=== PATIENT | female | born 1995 | race Caucasian/White ===

== ENCOUNTER 2018-07-11 11:03 | Emergency (ER) | payer SELFPAY ==
--- NOTE | 2018-07-11 12:05 | ER ---
Nurse's Notes [facility] Name: Odessa Deras Age: 22 yrs Sex: Female : 1995 Arrival Date: 07/11/2018 Time: 11:05 Bed Waiting Private MD: Unknown, Unknown Diagnosis: Presentation: 07/11 11:16 Presenting complaint: Patient states: She had been feeling sick for about a week, so aj1 she took a test and it was positive. Now she is having lower abdominal cramping for the past 3 days. Denies vaginal bleeding. Patient states that she is not sure how far along she is, and she is not sure when her last period was. Transition of care: patient was not received from another setting of care. Onset of symptoms was July 08, 2018. Risk Assessment: Do you want to hurt yourself or someone else? Patient reports no desire to harm self or others. Initial Sepsis Screen: Does the patient meet any 2 criteria? No. Patient's initial sepsis screen is negative. Does the patient have a suspected source of infection? No. Patient's initial sepsis screen is negative. Care prior to arrival: None. 11:16 Method Of Arrival: Ambulatory aj1 11:16 Acuity: DAVY 3 aj1 Triage Assessment: 11:18 General: Appears in no apparent distress. comfortable, Behavior is calm, cooperative, aj1 appropriate for age. Pain: Complains of pain in right lower quadrant and left lower quadrant Pain currently is 6 out of 10 on a pain scale. Quality of pain is described as crampy. Neuro: Level of Consciousness is awake, alert, obeys commands. Cardiovascular: Patient's skin is warm and dry. Respiratory: Airway is patent Respiratory effort is even, unlabored, Respiratory pattern is regular, symmetrical. GI: Reports cramping. : Denies vaginal bleeding. DRAWING IN HAND: 11:18 LMP N/A - Paitent states she is unsure when her LMP was aj1 Historical: - Allergies: 11:18 PENICILLINS; aj1 - Home Meds: 11:18 None [Active]; aj1 - PMHx: 11:18 pcos; aj1 - PSHx: 11:18 Tonsillectomy; aj1 - Immunization history:: Flu vaccine is not up to date. - Social history:: Smoking status: Patient/guardian denies using tobacco. - Ebola Screening: : Patient denies travel to an Ebola-affected area in the 21 days before illness onset. Assessment: 12:04 Reassessment: Patient told registration staff that she did not want to wait anymore so aj1 she was leaving. Vital Signs: 11:18 BP 111 / 74; Pulse 98; Resp 18; Temp 97.7; Pulse Ox 100% on R/A; Weight 58.97 kg (R); aj1 Height 5 ft. 5 in. (165.10 cm) (R); Pain 6/10; 11:18 Body Mass Index 21.63 (58.97 kg, 165.10 cm) aj1 ED Course: 11:05 Patient arrived in ED. ag5 11:05 Unknown, Unknown is Private Physician. ag5 11:17 Triage completed. aj1 11:18 Arm band placed on Patient placed in waiting room, Patient notified of wait time. aj1 Administered Medications: No medications were administered Outcome: 12:05 Patient left the ED. aj1 Signatures: Lin Brower RN RN aj1 [facility] Corrections: (The following items were deleted from the chart) 11:19 11:18 Arm band placed on Patient placed in an exam room, aj1 aj
[2018-07-11 13:44] VITALS: BP 111/74; TEMP 97.7; O2SAT 100
== END 2018-07-11 12:05 | disposition left against medical advice (07) ==
LOC: ER 11:03
DX: Z53.21 Procedure and treatment not carried out due to patient leaving prior to being seen by health care provider (principal)
CPT/HCPCS: 99281

== ENCOUNTER 2020-05-31 11:05 | Emergency (ER) | payer BC ==
--- OUTSIDE RECORDS SUMMARY | 2020-05-31 11:07 | XMS REPORT | Continuity of Care Document ---
:1995 Author Organization [facility] [employer] [facility] Care Team Providers Name Role Phone [facility] Unavailable Un available Problems Problem Status Onset Classification Date Comments Sourc e Date Reported ARM INJURY Active Ulisesfélix ast 4 Discharge 10/05/2013 Jeremiah ast Diagnosis: 4 Elbow injury Discharge 10/05/2013 Jeremiah ast Diagnosis: 4 Fall Injury of Resolved Problem 10/05/2013 Jeremiah ast upper extremity (disorder) Medications Medication Details Route Status Patient Ordering Order Source Instructions Provider Date Motrin 600 mg, 1 Inactive tab, 014 [place] Route: PO, Drug form: TAB, ONCE, Dosing Weight 56.818, kg, Priority: STAT, Start date: 10/02/13 14:19:00, Stop date: 10/02/13 14:19:00(S carmen as: Motrin) "Do Not Crush" Take with food. Allergies, Adverse Reactions, Alerts Substance Category Reaction Severity Reaction Status Date Comments S ource type Reported penicillins Assertion Drug Active allergy [place] Immunizations No Data Provided for This Section Results No Data Provided for This Section Pathology Reports No Data Provided for This Section Diagnostic Reports No Data Provided for This Section Consultation Notes No Data Provided for This Section Discharge Summaries No Data Provided for This Section History and Physicals No Data Provided for This Section Vital Signs Vital Sign Value Date Comments Source Heart Rate 72 10/02/2013 [facility] Temperature Oral (F) 98.6 F 10/02/2013 [place] Diastolic (mm Hg) 68 10/02/2013 [facility] st Systolic (mm Hg) 108 10/02/2013 [place] Respitory Rate 20 10/02/2013 [facility] BMI Calculated 24.46 10/02/2013 [facility] Weight 56.818 10/02/2013 [facility] Height 152.4 cm 10/02/2013 [facility] Temperature Oral (F) 98.4 F 10/02/2013 [place] Heart Rate 87 10/02/2013 [facility] Respitory Rate 19 10/02/2013 [place] Diastolic (mm Hg) 64 10/02/2013 [facility] st Systolic (mm Hg) 99 10/02/2013 [facility] t Encounters Location Location Encounter Encounter Reason Attending ADM DC Stat us Source Details Type Number For Provider Date Date Visit [facility] [id number] _MAPID: Luciano 10/02 10/02 [facility] [id number] E[facility]NTR[facility] [id number] Hospital 106 Procedures No Data Provided for This Section Assessment and Plan No Data Provided for This Section Plan of Care No Data Provided for This Section Social History No Data Provided for This Section Family History No Data Provided for This Section Advance Directives No Data Provided for This Section Functional Status No Data Provided for This Section
--- OUTSIDE RECORDS SUMMARY | 2020-05-31 11:07 | XMS REPORT | Summary of Care ---
:1995 Author Organization [facility] Address [address] [place] [address] Care Team Providers Name Role Phone Pcp, Does Not Have A Primary Care Provider Encounter Details Date Type Department Care Team Description 03/19/2020 Orders Only [facility] Doctor Unassigned, No [address] [facility] [place] [address] [address] [place] [address] Allergies Active Allergy Reactions Severity Noted Date Comments Penicillins Unknown - See comments 01/01/2013 documented as of this encounter (statuses as of 03/19/2020) Medications Medication Sig Dispensed Refills Start Date End Date Status traMADOL (ULTRAM) 50 Take 1 tablet by mouth every 6 (six) hours as needed for Pain (scale 4-6). Tato Johnson PA-C / Wyatt Dias MD 20 tablet 0 06/04/2016 Active mg tablet JOSE# [id number] DPS# [id number] [place] Lic.# [id number] NPI# [id number] silver sulfADIAZINE Apply to area(s) 2 25 g 1 06/04/2016 Active (SILVADENE) 1 % cream (two) times daily. metFORMIN 500 mg Take 500 mg by 0 Active tablet mouth 2 (two) times daily with meals. sulfamethoxazole-trim Take 1 tablet by 20 tablet 0 07/24/2019 Active ethoprim 800-160 mg mouth every 12 per (twelve) hours. tabletIndications: Mastitis, Rash documented as of this encounter (statuses as of 03/19/2020) Active Problems Problem Noted Date Contraceptive management 09/08/2015 Well woman exam 09/08/2015 Overweight 09/08/2015 Dysmenorrhea 09/08/2015 Encounter for Nexplanon removal 10/14/2014 documented as of this encounter (statuses as of 03/19/2020) Resolved Problems Problem Noted Date Resolved Date Irregular menstrual cycle 10/14/2014 09/08/2015 History of ovarian cyst 06/24/2014 09/08/2015 Rubella immune 01/01/2013 09/08/2015 documented as of this encounter (statuses as of 03/19/2020) Immunizations Name Administration Dates Next Due HPV 09/07/2015 Td 01/01/2010 documented as of this encounter Social History Tobacco Use Types Packs/Day Years Used Date Never Smoker Smokeless Tobacco: Never Used Alcohol Use Drinks/Week oz/Week Comments No Sex Assigned at Date Recorded Not on file documented as of this encounter Last Filed Vital Signs Not on filedocumented in this encounter Plan of Treatment Health Maintenance Due Date Last Done Comments VARICELLA VACCINES (1 of 2 11/08/1996 - 2-dose childhood series) Depression Screening 2007 DTaP,Tdap,and Td Vaccines 11/08/2014 01/01/2010 (2 - Tdap) HPV VACCINES (2 - 3-dose 10/05/2015 09/07/2015 series) CHLAMYDIA SCREENING 09/07/2016 09/07/2015, 09/22/2014, 06/24/2014, Additional history exists PAP SMEAR 11/08/2016 INFLUENZA VACCINE (#1) 2020 PNEUMOCOCCAL 0-64 YEARS Aged Out No longe r eligible COMBINED SERIES based on patient 's age to complete this topic documented as of this encounter Procedures Procedure Name Priority Date/Time Associated Diagnosis Comme nts ASSIGNMENT OF BENEFITS Routine 03/19/2020 10:18 AM CDT documented in this encounter Results Not on filedocumented in this encounter Insurance Payer Benefit Plan Subscriber ID Effective Phone Address Typ e / Group Dates [facility] [id number] 2019-Prese [phone] [address] PPO/POS [id number] [place] [address] [facility] [id number] 2014-Pres [phone] [address] Med icaid ent [address] [place] [address] [facility] [id number] 2014-Pres P O BARBIE Ag ency [employer]ANN[employer]ANN[employer] ent [address] [facility] [place] [phone] documented as of this encounter
--- OUTSIDE RECORDS SUMMARY | 2020-05-31 11:07 | XMS REPORT | Continuity of Care Document ---
:1995 Author Organization [facility] t Address [address] [place] [address] Care Team Providers Name Role Phone Asked, Pcp Primary Care Physician Unavailable 2, Lab Attending Clinician Unavailable Richar FRENCH, Cam Attending Clinician Bowen Doyle Attending Clinician Payers Payer Name Policy Type Policy Number Effective Date Expiration Date S ource Problems Condition Condition Condition Status Onset Resolution Last Treating Co mments Source Name Details Category Date Date Treatment Clinician Date ARM INJURY Diagnosis Active 2013-10-02 Memoria 10-02 15:39:00 l ARM 08:39: [place] INJURY 00 Active 10/02/2013 [place] Injury of Problem Resolve 2013-10-05 M emoria upper d 00:45:16 l extremity Injury Cristy nn (disorder) of upper extremity (disorder) Resolved Problem 10/05/2013 [place] Discharge Problem 2013-10-05 2013-10-05 Memoria Diagnosis: 10-02 00:45:16 00:45:16 l Elbow 05:00: [place] injury Discharge 00 Diagnosis: Elbow injury 10/02/2013 10/05/2013 [place] Discharge Problem 2013-2013-10-05 2013-10-05 Memoria Diagnosis: 3-13 00:45:16 00:45:16 l Fall 05:00: [place] Discharge 00 Diagnosis: Fall 10/02/2013 10/05/2013 [facility] Allergies, Adverse Reactions, Alerts Allergy Allergy Status Severity Reaction(s) Onset Inactive Treating Comm ents Source Name Type Date Date Clinician Penicill Propensi Active 2016-07 [place] to 09-04 [facility] adverse 00:00: st reaction 00 s to drug Penicill DA Active U 2012-07 [facility] [place] penicill penicill Active Memori a ins ins l [place] Social History Social Habit Start Date Stop Date Quantity Comments Source Sex Assigned At [facility] ethodist Tobacco use and 2018-12-27 2018-12-27 Never used [facility] ethodist exposure 00:00:00 00:00:00 Alcohol intake 2018-12-27 2018-12-27 Ex-drinker [facility]ist 00:00:00 00:00:00 (finding) Smoking Status Start Date Stop Date Source Never smoker [place] [facility] Medications Ordered Filled Start Stop Current Ordering Indication Dosage Frequency Signature Comments Components Source Medication Medication Date Date Medication? Clinician (SIG) Name Name Marlon No 600 mg, 1 Memori a -13 tab, l 19:19: Route: PO, [place] 00 Drug form: TAB, ONCE, Dosing Weight 56.818, kg, Priority: STAT, Start date: 10/02/13 14:19:00, Stop date: 10/02/13 14:19:00(S carmen as: Motrin) "Do Not Crush" Take with food. Vital Signs Vital Name Observation Time Observation Value Comments Source Heart Rate 2013-10-02 21:14:00 Ziyad Huang Temperature Oral (F) 2013-10-02 21:14:00 98.6 F [facility] [place] Diastolic (mm Hg) 2013-10-02 21:14:00 Mem oriharry Huang Systolic (mm Hg) 2013-10-02 21:14:00 Celio niki Huang Respitory Rate 2013-10-02 21:14:00 Memevelin Lentz BMI Calculated 2013-10-02 19:12:00 Marylin Lentz Weight 2013-10-02 19:12:00 [facility] [place] Height 2013-10-02 19:12:00 152.4 cm [facility] [place] Temperature Oral (F) 2013-10-02 19:12:00 98.4 F [facility] [place] Heart Rate 2013-10-02 19:12:00 [facility] Respitory Rate 2013-10-02 19:12:00 Memori al [place] Diastolic (mm Hg) 2013-10-02 19:12:00 Mem orial [place] Systolic (mm Hg) 2013-10-02 19:12:00 Celio rial [place] Procedures This patient has no known procedures. Plan of Care Planned Activity Planned Date Details Comments Source Future Scheduled 2020-02-21 INFLUENZA VACCINE [place] [facility] 00:00:00 [code = INFLUENZA VACCINE] Future Scheduled 2016-11-08 Screening for [facility] 00:00:00 malignant neoplasm of cervix (procedure) [code = 542151508] Future Scheduled 2011 CHLAMYDIA SCREENING [place] [facility] 00:00:00 [code = CHLAMYDIA SCREENING] Encounters Start End Encounter Admission Attending Care Care Encounter Source Date/Time Date/Time Type Type Clinicians Facility Department ID 2020-03-31 2020-03-31 Casing Splitter 2, Joao [facility] [id number] 08:49:59 09:04:59 Visit Monika [id number] [place] [id number] Professio [phone] [facility] 353 Building 2020-03-19 2020-03-19 Initial She Mcqueen [facility] [id number] 10:20:58 15:16:36 [place] [id number] Visit [place] [id number] Professio [phone] [place] 134 Building 2013-10-02 2013-10-02 Outpatient EMANI Doyle [id number] 14:03:00 16:16:00 Luciano Wiseman Results Test Description Test Time Test Comments Results Result Comments Source GLUBED 2019-07-25 14:39:00 Test Item Value Reference Range Interpretation Comme nts GLUBED (test code = GLUBED) 185 mg/dL 65-110 H UA RFLX MICR CULT IF [id number] 14:10:00 Test Item Value Reference Range Interpretation Comments UA COLOR (test code = COLU) YELLOW YELLOW UA APPEARANCE (test code = CLEAR CLEAR APPU) UA GLUCOSE DIPSTICK (test code 2+ NEG A = DGLUU) UA BILIRUBIN DIPSTICK (test NEGATIVE NEG code = BILU) UA KETONE DIPSTICK (test code NEGATIVE NEG = KETU) UA SPECIFIC GRAVITY (test code 1.020 1.001-1.035 N = SGU) UA BLOOD DIPSTICK (test code = 3+ NEG A DARIEN) UA PH DIPSTICK (test code = 6.0 5-9 GERARDO) UA PROTEIN DIPSTICK (test code NEGATIVE NEG = PROU) UA UROBILINIOGEN DIPSTICK NEGATIVE mg/dL NEG (test code = URO) UA NITRITE DIPSTICK (test code NEG NEG = GAL) UA LEUKOCYTE ESTERASE DIPSTICK NEG NEG (test code = LEUU) UA WBC (test code = WBCU) 0-2 #/hpf NONE SEEN UA RBC (test code = RBCU) 11-15 #/hpf NONE SEEN A UA EPITHELIAL CELLS (test code RARE #/HPF RARE-FEW = EPIU) UA BACTERIA (test code = BACU) RARE /HPF RARE-FEW Indication for culture: Suprapubic PainUR HCG [id number] 14:10:00 Test Item Value Reference Range Interpretation Comments UR HCG QUAL (test NEGATIVE 1. Very di lute urine code = HCGQLU) specimens, as indicated by a lowspecific g ravity, may not contain rep resentative levels ofhCG. 2 . False negative result s may occur when the levels of hCGare below the sensi tivity level of the test. If is still suspec janneth, a first morningurine sp ecimen should be colle cted 48 hours later and tested. Indication for culture: Suprapubic PainUA RFLX MICR CULT IF INDICATED 2019-07-25 14:03:00 Test Item Value Reference Range Interpretation Comments UA COLOR (test code = COLU) YELLOW UA APPEARANCE (test code = APPU) CLEAR UA GLUCOSE DIPSTICK (test code = NEGATIVE DGLUU) UA BILIRUBIN DIPSTICK (test code = NEGATIVE BILU) UA KETONE DIPSTICK (test code = KETU) NEGATIVE UA SPECIFIC GRAVITY (test code = SGU) 1.001-1.035 UA BLOOD DIPSTICK (test code = DARIEN) NEGATIVE UA PH DIPSTICK (test code = GERARDO) 5-9 UA PROTEIN DIPSTICK (test code = PROU) NEGATIVE UA UROBILINIOGEN DIPSTICK (test code = mg/dL NEG URO) UA NITRITE DIPSTICK (test code = GAL) NEGATIVE UA LEUKOCYTE ESTERASE DIPSTICK (test NEG code = LEUU) UA WBC (test code = WBCU) #/hpf NONE SEEN UA EPITHELIAL CELLS (test code = EPIU) #/HPF RARE-FEW Indication for culture: Suprapubic PainUR HCG [id number] 14:03:00 Test Item Value Reference Range Interpretation Comments UR HCG QUAL (test NEGATIVE 1. Very di lute urine code = HCGQLU) specimens, as indicated by a lowspecific g ravity, may not contain rep resentative levels ofhCG. 2 . False negative result s may occur when the levels of hCGare below the sensi tivity level of the test. If is still suspec janneth, a first morningurine sp ecimen should be colle cted 48 hours later and tested. Indication for culture: Suprapubic Pain
--- OUTSIDE RECORDS SUMMARY | 2020-05-31 11:07 | XMS REPORT | Summary of Care ---
:1995 Author Organization [facility] Address [address] [place] [id number] Care Team Providers Name Role Phone Pcp, Does Not Have A Primary Care Provider Reason for Visit Reason Comments LAB Encounter Details Date Type Department Care Team Description 03/19/2020 Leather Coater Visit [facility] She Mcqueen MD [address] [facility] [address] [place] [address] Abdominal pain, left lower quadrant; Professional Office 2, [facility] Lab examination or test, positive result Building Phlebotomy Lab Professional Office Building [address] [facility] , [address] [place] [address] Allergies Active Allergy Reactions Severity Noted Date Comments Penicillins Unknown - See comments 01/01/2013 documented as of this encounter (statuses as of 03/19/2020) Medications No known medicationsdocumented as of this encounter (statuses as of 03/19/2020) Active Problems Problem Noted Date Obesity (BMI 30-39.9) 03/19/2020 Abdominal pain, left lower quadrant 03/19/2020 examination or test, positive result 020 Estimated Date of Delivery Comments Yes 11/23/2020 Based on last menstr ual period of 02/17/2020 (Exact Date) documented as of this encounter (statuses as of 03/19/2020) Resolved Problems Problem Noted Date Resolved Date Contraceptive management 09/08/2015 03/19/2020 Well woman exam 09/08/2015 03/19/2020 Overweight 09/08/2015 03/19/2020 Dysmenorrhea 09/08/2015 03/19/2020 Irregular menstrual cycle 10/14/2014 09/08/2015 Encounter for Nexplanon removal 10/14/2014 03/19/20 20 History of ovarian cyst 06/24/2014 09/08/2015 Rubella immune 01/01/2013 09/08/2015 documented as of this encounter (statuses as of 03/19/2020) Immunizations Name Administration Dates Next Due HPV 09/07/2015 Td 01/01/2010 documented as of this encounter Social History Tobacco Use Types Packs/Day Years Used Date Never Smoker Smokeless Tobacco: Never Used Alcohol Use Drinks/Week oz/Week Comments No Estimated Date of Delivery Comments Yes 11/23/2020 Based on last menstr ual period of 02/17/2020 (Exact Date) Sex Assigned at Date Recorded Not on file COVID-19 Exposure Response Date Recorded In the last month, have you been in contact with No / Unsure 03/19/2020 10:20 AM CDT someone who was confirmed or suspected to have Coronavirus / COVID-19? documented as of this encounter Last Filed Vital Signs Not on filedocumented in this encounter Nursing Notes Mary Mahan - 03/19/2020 11:45 AM CDT Venipuncture collection performed by clean technique on the right anticubitus. Total of 1 attempts were made. Slight pressure and a bandage/dressing were applied to the site(s). The patient experiencedno complications. The following specimens were processed according to instructions and sent to [facility] laboratories per lab order on 03/19/20: LT BLUE SST 1 RED LAV 2 PPT DK GREEN (LiHep) DK GREEN (SodH) PUENTE DK BLUE (K2) DK BLUE (S) ACD Blood Culture NIPT/NTD documented in this encounter Plan of Treatment Date Type Specialty Care Team Description 03/22/2020 Leather Coater Visit Phlebotomy She Mcqueen MD [address] [place] [address] [place] [address] 2, [facility] 03/24/2020 Leather Coater Visit Phlebotomy She Mcqueen MD [address] [place] [address] [address] [place] [address] [phone] 2, [facility] 03/24/2020 Appointment Radiology She Mcqueen M D [address] [place] [address] [address] [place], [place] [address] [phone] 04/09/2020 Routine Visit Obstetrics & She Mcqueen MD Gynecology [address] [place] [address] [address] [place], [place] [address] Health Maintenance Due Date Last Done Comments [...] this topic documented as of this encounter Results Not on filedocumented in this encounter Visit Diagnoses Diagnosis Abdominal pain, left lower quadrant examination or test, positive result documented in this encounter Insurance Payer Benefit Plan Subscriber ID Effective Dates Phone Address Type / Group [facility] [id number] 2019-Lindsay [phone] [address] PPO/POS [place] [id number] [place] [address] [phone] [id number] (Work) documented as of this encounter
--- OUTSIDE RECORDS SUMMARY | 2020-05-31 11:07 | XMS REPORT | Clinical Summary ---
:1995 Author Organization [facility] Address [address] [place] [address] Care Team Providers Name Role Phone Asked, No Pcp Primary Care Provider Unavailable Allergies Active Allergy Reactions Severity Noted Date Comments Penicillins 07/04/2017 Medications No known medications Active Problems Not on file Surgical History Surgery Date Site/Laterality Comments TONSILLECTOMY Medical History Medical History Date Comments PCOS (polycystic ovarian syndrome) Social History Tobacco Use Types Packs/Day Years Used Date Never Smoker Smokeless Tobacco: Never Used Alcohol Use Drinks/Week oz/Week Comments Not Currently Sex Assigned at Date Recorded Not on file Last Filed Vital Signs Not on file Plan of Treatment Health Maintenance Due Date Last Done Comments CHLAMYDIA SCREENING 2011 CERVICAL CANCER SCREENING 11/08/2016 INFLUENZA VACCINE 02/21/2020 Results Not on fileafter 05/31/2019 Advance Directives For more information, please contact: [phone] Type Date Recorded 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
--- OUTSIDE RECORDS SUMMARY | 2020-05-31 11:08 | XMS REPORT | Summary of Care ---
:1995 Author Organization [facility] Address [address] [place] [address] Care Team Providers Name Role Phone Pcp, Does Not Have A Primary Care Provider Reason for Referral Radiology Services (Routine) Status Reason Specialty Diagnoses / Referred By Referred To Procedures Contact Contact Authorized Diagnostic Diagnoses Abdominal pain, left lower quadrant She Mcqueen, Radiology Procedures US PELVIS COMPLETE WITH TRANSVAGINAL [address] [place] [address] [facility] [address] [place] [address] Reason for Visit Reason Comments New OB Visit Encounter Details Date Type Department Care Team Description 03/19/2020 Initial [facility] Women's She Mcqueen am, MD Abdominal pain, left lower quadrant (Claribel patricio Dx); Visit Healthcare- [address] [place] [address] examination or test, positive result Monika Friedman [facility] [address], [address] [place] [address] [phone] Allergies Active Allergy Reactions Severity Noted Date Comments Penicillins Unknown - See comments 01/01/2013 documented as of this encounter (statuses as of 03/19/2020) Medications Medication Sig Dispensed Refills Start Date End Date Status traMADOL (ULTRAM) Take 1 tablet by mouth every 6 (six) hours as needed for Pain (scale 4-6). Tato Johnson PA-C / Wyatt Dias MD 20 tablet 0 06/04/2016 Discontinued 50 mg tablet JOSE# [id number] DPS# [id number] (Patient [place] Lic.# [id number] NPI# [id number] Reported) silver Apply to 25 g 1 06/04/2016 Discontin ued sulfADIAZINE area(s) 2 (two) 0 ( Patient (SILVADENE) 1 % times daily. R eported) cream metFORMIN 500 mg Take 500 mg by 0 03/19/20 2 Discontinued tablet mouth 2 (two) 0 (Patie nt times daily Reported ) with meals. sulfamethoxazole- Take 1 tablet 20 tablet 0 07/24/2019 02 Discontinued trimethoprim by mouth every 0 (P atient 800-160 mg per 12 (twelve) Rep orted) tabletIndications hours. : Mastitis, Rash documented as of this encounter [...] of this encounter Last Filed Vital Signs Vital Sign Reading Time Taken Comments Blood Pressure 115/72 03/19/2020 10:26 AM CDT Pulse 85 03/19/2020 10:26 AM CDT Temperature 36.8 C (98.2 F) 03/19/2020 10:26 AM CDT Respiratory Rate 18 03/19/2020 10:26 AM CDT Oxygen Saturation - - Inhaled Oxygen Concentration - - Weight 74.8 kg (165 lb) 03/19/2020 10:26 AM CDT Height 152.4 cm (5') 03/19/2020 10:26 AM CDT Body Mass Index 32.22 03/19/2020 10:26 AM CDT documented in this encounter Progress Notes She Mcqueen MD - 03/19/2020 10:00 AM CDT Chief complaint: Chief Complaint Patient presents with New OB Visit HPI Odessa Deras is a 24 year old female @ 4w3d by Patient's last menstrual period was 02/17/2020 (exact date). here for NOB visit. + LLQ cramping that started yesterday. Intermittent. Denies vaginal bleeding. Histories OB History Para Term AB Living 2 0 0 0 1 0 SAB TAB Ectopic Multiple Live Births 0 0 0 0 # Outcome Date GA Lbr Farhad/2nd Weight Sex Delivery Anes PTL Lv 2 Current 2018 Past Medical History: Diagnosis Date Irregular menstrual cycle 10/14/2014 Menstrual disorder has menses every 1-3 months Ovarian cyst PCOS (polycystic ovarian syndrome) PCOS (polycystic ovarian syndrome) 2010 Family History Problem Relation Age of Onset Other - see comments Mother Ovarian Cysts Depression Mother Hypertension Mother Cancer Maternal Aunt Cancer Paternal Aunt Heart Maternal Grandmother High cholesterol Maternal Grandmother Family Status Relation Name Status Mo (Not Specified) MAunt (Not Specified) PAunt (Not Specified) MGMo (Not Specified) Past Surgical History: Procedure Laterality Date CT REMOVAL OF TONSILS,<12 Y/O 2014 Social History Socioeconomic History Marital status: Single Spouse name: Not on file Number of children: Not on file Years of education: Not on file Highest education level: Not on file Occupational History Not on file Social Needs Financial resource strain: Not on file Food insecurity Worry: Not on file Inability: Not on file Transportation needs Medical: Not on file Non-medical: Not on file Tobacco Use Smoking status: Never Smoker Smokeless tobacco: Never Used Substance and Sexual Activity Alcohol use: No Drug use: No Sexual activity: Yes Partners: Male control/protection: Condom Lifestyle Physical activity Days per week: Not on file Minutes per session: Not on file Stress: Not on file Relationships Social connections Talks on phone: Not on file Gets together: Not on file Attends rastafarian service: Not on file Active member of club or organization: Not on file Attends meetings of clubs or organizations: Not on file Relationship status: Not on file Intimate partner violence Fear of current or ex partner: Not on file Emotionally abused: Not on file Physically abused: Not on file Forced sexual activity: Not on file Other Topics Concern Not on file Social History Narrative Patient feels safe, denies any abuse at home. Social History Substance and Sexual Activity Sexual Activity Yes Partners: Male control/protection: Condom Genetic Screen Autism / Mental Retardation: No Rosalinda Disease: No Congenital Heart Defect: No Cystic Fibrosis: No Down Syndrome: No Familial Dysautonomia: No Hemophilia or other Blood Disorders: No Xavi Chorea: No Maternal Metabolic Disorder--specify (eg. Type 1 Diabetes, PKU): No Muscular Dystrophy: No Neural Tube Defect: No Recurrent Loss or a Stillbirth: No Sickle Cell Disease or Trait: No Antony Sachs: No Teratological Substances (specify type & strength/dose) since LMP: No Thalassemia: No Other Inherited Genetic or Chromosomal Disorder (specify): No Defects Not Listed (specify): n Labs No new labs Radiology No new radiology. Allergies Odessa is allergic to pcn [penicillins]. Medications Odessa currently has no medications in their medication list. Review of Systems Constitutional: Negative for chills, fatigue and fever. HENT: Negative for congestion, rhinorrhea, sneezing and sore throat. Eyes: Negative for photophobia and visual disturbance. Respiratory: Negative for cough, chest tightness, shortness of breath and wheezing. Breasts: Negative for discharge, mass, pain and unequal size. Cardiovascular: Negative for chest pain and palpitations. Gastrointestinal: Positive for abdominal pain. Negative for abdominal distention, anal bleeding, blood in stool, constipation, diarrhea, nausea and vomiting. Genitourinary: Negative for dysuria, urgency, frequency, vaginal bleeding and vaginal discharge. Musculoskeletal: Negative for gait problem. Skin: Negative for rash. Neurological: Negative for syncope, light-headedness and headaches. Psychiatric/Behavioral: Negative for dysphoric mood, self-injury and suicidal ideas. Hematological: Negative for cold intolerance and heat intolerance. Does not bruise/bleed easily. Endocrine: Negative for cold intolerance and heat intolerance. BP 115/72 (BP Location: Left arm, Patient Position: Sitting, BP CUFF SIZE: Adult Medium) | Pulse 85 | Temp 36.8 C (98.2 F) (Oral) | Resp 18 | Ht 5' (1.524 m) | Wt 165 lb (74.8 kg) | LMP 02/17/2020 (Exact Date) | BMI 32.22 kg/m Pregravid BMI: 32.22 Physical Exam Vitals reviewed. Constitutional: She is oriented to person, place, and time. Her body habitus is obese. Neck: No mass. No thyromegaly palpated. Cardiovascular: Regular rate and rhythm. Pulmonary/Chest: Breath sounds clear to auscultation. Normal inspiratory effort. Abdominal: Abdomen is soft. No tenderness present. No hernia palpated or inspected. Scars on her abdomen Neuro/Psychiatric: She has a normal mood and affect. She is oriented to person, place, and time. Skin: Skin normal. No rash present. Lymphadenopathy: No axillary adenopathy present. No inguinal adenopathy present. Breast: Right breast exhibits no mass, no nipple discharge and no tenderness. Left breast exhibits no mass, no nipple discharge and no tenderness. Breasts are symmetrical. External genitalia: Normal external genitalia appropriate for age. Normal hair distribution. No labial lesion. Urethral meatus: Normal urethral meatus Urethra: Normal urethra. Bladder: Normal bladder Vagina:Normal vagina. Cervix: Normal cervix. No lesion. No tenderness and no discharge present. Uterus: Uterus is normal size and non-tender. Adnexa: Right adnexa without tenderness or mass. Left adnexa tenderness. Adnexal fullness appreciated Anus/perineum: Normal perineum and normal anus. Assessment/Plan See OB Summary Return to clinic in 3 weeks. Reviewed patient instructions and provided printed copy. Activity restrictions: As tolerated at 4w3d This visit did not involve counseling and coordination that comprised more than 50% of the visit time. She Mcqueen MD 03/19/2020 11:45 AM documented in this encounter Miscellaneous Notes OB Summary Note - She Mcqueen MD - 03/19/2020 10:00 AM CDTAge: 24 year old GA: 4w3d by Patient's last menstrual period was 02/17/2020 (exact date). LLQ pain and positive test - adnexal fullness appreciated - serial Beta-HCG and pelvic USG ordered - ER precautions reviewed Zika precautions reviewed Discussed about COVID-19/flu precautions. Social distancing, frequent hand washings, wearing face mask, signs/symptoms for testing and to follow CDC recommendations discussed. RTC in 3 wks for PN unless clinically indicated otherwise documented in this encounter Plan of Treatment Date Type Specialty Care Team Description 03/22/2020 Correctional Case Records Supervisor Visit Phlebotomy She Mcqueen MD [address] [place] [address] [place] [address] [phone] 2, [facility] Lab 03/24/2020 Correctional Case Records Supervisor Visit Phlebotomy She Mcqueen MD [address] [place] [address] [place] [address] [phone], Ad[facility] Lab 03/24/2020 Appointment Radiology She Mcqueen M D [address] [place] [address] [address] [place], [place] [address] [phone] 04/09/2020 Routine Visit Obstetrics & She Mcqueen MD Gynecology [address] [place] [address] [address] [place], [place] [address] [phone] Name Type Priority Associated Diagnoses Order S chedule PAP Smear-Liquid Based LAB Routine examinat ion Expected: 03/19/2020, or test, positive Expires: 0 03/19/2021 result HCG, QUANTITATIVE, LAB Routine examination 48 hours for 3 or test, positive Occurrence s starting result 03/19/2020 unti l 04/19/2020, 1 completed WORKUP, BLOOD LAB Routine Abdominal pain, le ft Expected: 03/19/2020, BANK lower quadrant Expires: 02/21 US PELVIS COMPLETE WITH IMAGING Routine Abdominal pain, l eft Expected: 03/19/2020, TRANSVAGINAL lower quadrant Expires: 02/21 GC & CHLAMYDIA AMPLIFIED LAB Routine Abdominal pain, left Expected: 03/19/2020, ASSAY lower quadrant Expires: 02/21 Health Maintenance Due Date Last Done Comments [...] Name Priority Date/Time Associated Diagnosis Comme nts POCT URINALYSIS W/O Routine 03/19/2020 examination Results for this SPECIFIC GRAVITY or test, positive proced ure are in the result results section . POCT TEST Routine 03/19/2020 examination Results for this or test, positive procedure are in the result results section . documented in this encounter Results CBC WITH DIFF (03/19/2020 11:43 AM CDT) [facility] WBC 13.37 (H) 4.30 - 11.10 [facility] 10*3/L [facility] RBC 4.91 3.93 - 5.25 [facility] 10*6/L [facility] HGB 15.1 (H) 11.6 - 15.0 [facility] g/dL [facility] HCT 44.3 35.7 - 45.2 % [facility] MCV 90.2 80.6 - 95.5 fL [facility] MCH 30.8 25.9 - 32.8 pg [facility] MCHC 34.1 31.6 - 35.1 [facility] g/dL [facility] RDW-SD 39.6 39.0 - 49.9 fL [facility] RDW-CV 12.0 12.0 - 15.5 % [facility] PLT 333 166 - 358 [facility] 10*3/L [facility] MPV 10.4 9.5 - 12.9 fL [facility] NRBC/100 WBC 0.0 0.0 - 10.0 /100 [facility] WBCs [facility] NRBC x10^3 <0.01 10*3/L [facility] GRAN MAT (NEUT) % 57.5 % [facility] IMM GRAN % 0.40 % [facility] LYMPH % 32.3 % [facility] MONO % 8.3 % [facility] EOS % 1.3 % [facility] BASO % 0.2 % [facility] GRAN MAT x10^3(ANC) 7.67 (H) 1.88 - 7.09 [facility] 10*3/uL HOSPITAL LAB[facility] IMM GRAN x10^3 0.06 0.00 - 0.06 [facility] 10*3/uL H[facility]ITAL [facility] LYMPH x10^3 4.32 (H) 1.32 - 3.29 [facility] 10*3/uL HOS[facility]ITAL [facility] MONO x10^3 1.11 (H) 0.33 - 0.92 [facility] 10*3/uL HOSPITAL LAB[facility]ORY EOS x10^3 0.18 0.03 - 0.39 [facility] 10*3/uL HOSPITAL LAB[facility] BASO x10^3 0.03 0.01 - 0.07 [facility] 10*3/uL HOSPITAL LABORATORY Specimen Blood Performing Organization Address City/State/Zipcode Phone Number [facility] CLIA: [id number] [place] [address] LABORATORY [address] [facility] HCG, QUANTITATIVE, (03/19/2020 11:43 AM CDT) Pathologist Sig nature BETA HCG 62.85 Non- female [facility] ITAL and male patients: <5 LABORATORY mIU/mL Specimen Blood Narrative Performed At [facility] LABOR[facility]ORY Gestational Age Range (mIU/mL) 1-10 Weeks [phone] [id number] 11-15 Weeks [id number] 16-22 Weeks [id number] 23-40 Weeks [id number] Biotin has been reported to cause a negative bias, interpret results relative to patient's use of biotin. Performing Organization Address City/State/Zipcode Phone Number [facility] CLIA: [id number] [place] [address] [place] [address] POCT URINALYSIS W/O SPECIFIC GRAVITY (03/19/2020) Pathologist Sig nature POCT PH U n/a 5 - 8 mg/dl POCT U LEUK EST n/a Negative - Negative POCT U NIT n/a Negative - Negative POCT U PROT neg Negative - Negative POCT U GLU neg Negative - Negative POCT U KETONE n/a Negative - Negative POCT U BLD n/a Negative - Negative Specimen Urine - URINE, CLEAN CATCH POCT TEST (03/19/2020) Pathologist Sig nature POCT PREG Positive On board controls acceptable Yes with C Line POCT PREG LOT # POCT PREG TEST DATE Specimen Urine - URINE, CLEAN CATCH documented in this encounter Visit Diagnoses Diagnosis Abdominal pain, left lower quadrant - Pr imary examination or test, positive result documented in this encounter Insurance Payer Benefit Plan Subscriber ID Effective Dates Phone Address Type / Group [facility] [id number] 2019-Lindsay [phone] [address] PPO/POS [place] t [id number] [place] [address] [phone] (Work) documented as of this encounter"
--- OUTSIDE RECORDS SUMMARY | 2020-05-31 11:08 | XMS REPORT | Summary of Care ---
:1995 Author Organization [facility] Address [address] [place] [address] Care Team Providers Name Role Phone Pcp, Does Not Have A Primary Care Provider Reason for Visit Reason Comments LAB Encounter Details Date Type Department Care Team Description 03/22/2020 Regulation Supervisor Visit [facility] She Mcqueen MD [address] [place] [address] [address] [place] [address] Abdominal pain, left lower quadrant; Professional Office 2, [facility] Lab examination or test, positive result Building Phlebotomy Lab Professional Office Building [address] [facility] , [address] [place] [address] Allergies Active Allergy Reactions Severity Noted Date Comments Penicillins Unknown - See comments 01/01/2013 documented as of this encounter (statuses as of 03/22/2020) Medications No known medicationsdocumented as of this encounter (statuses as of 03/22/2020) Active Problems Problem Noted Date Obesity (BMI 30-39.9) 03/19/2020 Abdominal pain, left lower quadrant 03/19/2020 examination or test, positive result 020 Estimated Date of Delivery Comments Yes 11/23/2020 Based on last menstr ual period of 02/17/2020 (Exact Date) documented as of this encounter (statuses as of 03/22/2020) Resolved Problems Problem Noted Date Resolved Date Contraceptive management 09/08/2015 03/19/2020 Well woman exam 09/08/2015 03/19/2020 Overweight 09/08/2015 03/19/2020 Dysmenorrhea 09/08/2015 03/19/2020 Irregular menstrual cycle 10/14/2014 09/08/2015 Encounter for Nexplanon removal 10/14/2014 03/19/20 20 History of ovarian cyst 06/24/2014 09/08/2015 Rubella immune 01/01/2013 09/08/2015 documented as of this encounter (statuses as of 03/22/2020) Immunizations Name Administration Dates Next Due HPV [...] been in contact with No / Unsure 03/22/2020 8:16 AM CDT someone who was confirmed or suspected to have Coronavirus / COVID-19? documented as of this encounter Last Filed Vital Signs Not on filedocumented in this encounter Nursing Notes Mary Mahan - 03/22/2020 10:30 AM CDT Venipuncture collection performed by clean technique on the left anticubitus. Total of 1 attempts were made. Slight pressure and a bandage/dressing were applied to the site(s). The patient experienced no complications. The following specimens were processed according to instructions and sent to [facility] laboratories per lab order on 03/22/20: LT BLUE SST 1 RED LAV PPT DK GREEN (LiHep) DK GREEN (SodH) PUENTE DK BLUE (K2) DK BLUE (S) ACD Blood Culture NIPT/NTD Patient has been identified by name and was provided with cup, antiseptic towelette, and clean catchinstructions. 1 urine specimen(s) sent. Unpreserved 1 Urine Culture Aptima tube Other urine documented in this encounter Plan of Treatment Date Type Specialty Care Team Description 03/24/2020 Regulation Supervisor Visit Phlebotomy She Mcqueen MD [address] [place] [address] [address] [place] [address] [phone], Adc Lab 03/24/2020 Appointment Radiology hSe Mcqueen M D [address] [place] [address] [address] [place], [place] [address] 04/09/2020 Routine Visit Obstetrics & She Mcqueen MD Gynecology [address] [place] [address] [address] [place], [place] [address] Health Maintenance Due Date [...] Effective Dates Phone Address Type / Group [facility] [id number] 2019-Lindsay [phone] [address] PPO/POS [place] [id number] [place] [address] [phone] (Work) documented as of this encounter
--- OUTSIDE RECORDS SUMMARY | 2020-05-31 11:08 | XMS REPORT | Summary of Care ---
:1995 Author Organization [facility] Address [address] [place] [address] Care Team Providers Name Role Phone Pcp, Does Not Have A Primary Care Provider Reason for Referral Radiology Services (Routine) Status Reason Specialty Diagnoses / Referred By Referred To Procedures Contact Contact Authorized Diagnostic Diagnoses Abdominal pain, left lower quadrant She Mcqueen, Radiology Procedures US PELVIS COMPLETE WITH TRANSVAGINAL [address] [place] [address] [facility] [address] [place] [address] Reason for Visit Reason Comments New OB Visit Encounter Details Date Type Department Care Team Description 03/19/2020 Initial [facility] Women's She Mcqueen am, MD Abdominal pain, left lower quadrant (Clarbiel patricio Dx); Visit Healthcare- [address] [place] [address] examination or test, positive result Monika Friedman [facility] [address], [address] [place] [address] [phone] Allergies Active Allergy Reactions Severity Noted Date [...] 0 06/04/2016 Discontinued 50 mg tablet JOSE# [id number] DPS# [id number] (Patient [place] Lic.# [id number] NPI# [id number] Reported) silver Apply to 25 g 1 [...] Specified) Past Surgical History: Procedure Laterality Date OR REMOVAL OF TONSILS,<12 Y/O 2014 Social History [...] file Gets together: Not on file Attends yarsanism service: Not on file Active member of [...] wks for PN unless clinically indicated otherwise ddendum Note - Gill Negrete RN - 03/19/2020 10:00 AM CDT Addended by: GILL AMOS on: 03/19/2020 03:16 PM Modules accepted: Orders documented in this encounter Plan of Treatment Date Type Specialty Care Team Description 03/22/2020 Pyrometer Temperature Regulator Visit Phlebotomy She Mcqueen MD [address] [place] [address] [address]. [address] [place], [place] [phone] 2, [facility] 03/24/2020 Pyrometer Temperature Regulator Visit Phlebotomy She Mcqueen MD [address] [place] [address] [address]. [address] [place] [address] [phone], Ad[facility] Lab 03/24/2020 Appointment Radiology She Mcqueen M D [address] [place] [address] [address]. [address] [place], [place] [address] [phone] 04/09/2020 Routine Visit Obstetrics & Mcqueen, She Vargas MD Gynecology [address] [place] [address] [address]. [address] [place], [place] [address] [phone] Name Type Priority Associated Diagnoses Order S [...] Expected: 03/19/2020, ASSAY lower quadrant Expires: 02/21 HCG, QUANTITATIVE, LAB Routine examination Expected: 03/22/2020, or test, positive Expires: 0 03/26/2020 result Abdominal pain, left lower quadrant Health Maintenance Due Date Last Done Comments [...] CBC WITH DIFF (03/19/2020 11:43 AM CDT) Pathologist Sig nature WBC 13.37 (H) 4.30 - 11.10 [facility] 10*3/L [facility] LABORATORY RBC 4.91 3.93 - 5.25 [facility] 10*6/L [facility] HGB 15.1 (H) 11.6 - 15.0 [facility] g/dL [facility] HCT 44.3 35.7 - 45.2 % [facility] MCV 90.2 80.6 - 95.5 fL [facility] MCH 30.8 25.9 - 32.8 pg [facility] MCHC 34.1 31.6 - 35.1 [facility] g/dL [facility] RDW-SD 39.6 39.0 - 49.9 fL [facility] RDW-CV 12.0 12.0 - 15.5 % [facility] PLT 333 166 - 358 [facility] 10*3/L [facility] MPV 10.4 9.5 - 12.9 fL [facility] NRBC/100 WBC 0.0 0.0 - 10.0 /100 [facility] WBCs [facility] NRBC x10^3 <0.01 10*3/L [facility] GRAN MAT (NEUT) % 57.5 % [facility] IMM GRAN % 0.40 % [facility] LYMPH % 32.3 % [facility] MONO % 8.3 % [facility] EOS % 1.3 % [facility] BASO % 0.2 % [facility] GRAN MAT x10^3(ANC) 7.67 (H) 1.88 - 7.09 [facility] 10*3/uL [facility] IMM GRAN x10^3 0.06 0.00 - 0.06 [facility] 10*3/uL HOSPITAL LAB[facility]ATORY LYMPH x10^3 4.32 (H) 1.32 - 3.29 [facility] 10*3/uL [facility] LAB[facility] MONO x10^3 1.11 (H) 0.33 - 0.92 [facility] 10*3/uL HOSPITAL LABORATORY EOS x10^3 0.18 0.03 - 0.39 [facility] 10*3/uL [facility] BASO x10^3 0.03 0.01 - 0.07 [facility] 10*3/uL [facility] Specimen Blood Performing Organization Address [facility]ode Phone Number [facility] CLIA: [id number] [place] [address] [place] [address] HCG, QUANTITATIVE, (03/19/2020 11:43 AM CDT) Pathologist Sig [facility] BETA HCG 62.85 Non- female [facility] ITAL and male patients: <5 LABORATORY mIU/mL Specimen Blood Narrative Performed At [facility] LABORATORY Gestational Age Range (mIU/mL) 1-10 Weeks 4 4-485833 11-15 Weeks 19101-127703 16-22 Weeks 7480-506729 23-40 Weeks 1531-742793 Biotin has been reported to cause a negative bias, interpret results relative to patient's use of biotin. Performing Organization Address [facility] Centercoor Phone Number [facility] CLIA: [id number] [place] [address] [place] [address] POCT URINALYSIS W/O SPECIFIC GRAVITY (03/19/2020) Pathologist [...] Effective Dates Phone Address Type / Group [facility] [id number] 2019-Lindsay [phone] [address] PPO/POS [place] t 7 [id number] [place] [address] [phone] (Work) documented as of this encounter"
--- OUTSIDE RECORDS SUMMARY | 2020-05-31 11:09 | XMS REPORT | Summary of Care ---
:[address] [facility] - [facility] Address [address] [place] [address] Care Team Providers Name Role Phone Pcp, Does Not Have A Primary Care Provider Reason for Visit Reason Comments Results Encounter Details Date Type Department Care Team Description 03/25/2020 Telephone [facility] Women's Mcqueen, She dillon MD Results Healthcare- [address] [place] [address] [address] [place] [address] [place] [address] [phone] Allergies Active Allergy Reactions Severity Noted Date Comments Penicillins Unknown - See comments 01/01/2013 documented as of this encounter (statuses as of 03/25/2020) Medications No known medicationsdocumented as of this encounter (statuses as of 03/25/2020) Active Problems Problem Noted Date Obesity (BMI 30-39.9) 03/19/2020 Abdominal pain, left lower quadrant 03/19/2020 examination or test, positive result 020 Estimated Date of Delivery Comments Yes 11/23/2020 Based on last menstr ual period of 02/17/2020 (Exact Date) documented as of this encounter (statuses as of 03/25/2020) Resolved Problems Problem Noted Date Resolved Date Contraceptive management 09/08/2015 03/19/2020 Well woman exam 09/08/2015 03/19/2020 Overweight 09/08/2015 03/19/2020 Dysmenorrhea 09/08/2015 03/19/2020 Irregular menstrual cycle 10/14/2014 09/08/2015 Encounter for Nexplanon removal 10/14/2014 03/19/20 20 History of ovarian cyst 06/24/2014 09/08/2015 Rubella immune 01/01/2013 09/08/2015 documented as of this encounter (statuses as of 03/25/2020) Immunizations Name Administration Dates Next Due HPV [...] been in contact with No / Unsure 03/24/2020 8:47 AM CDT someone who was confirmed or suspected to have Coronavirus / COVID-19? documented as of this encounter Last Filed Vital Signs Not on filedocumented in this encounter Miscellaneous Notes Telephone Encounter - Briana Franks RN - 03/25/2020 2:35 PM CDTRN advised patient that Dr. Mcqueen has not yet reviewed the US results, and that someone from the office will reach out to her as soon as she releases the results. Patient verbalized understanding and agrees to plan of care Briana Franks RN 03/25/2020 2:36 PM Telephone Encounter - Elizabeth De Guzman - 03/25/2020 12:46 PM CDTPatient calling back in regards to below encounter. elephone Encounter - Leticia Lester - 03/25/2020 9:09 AM CDTPt is calling and is requesting to know if her ultrasound results are back, please call patient backin regards to this encounter. documented in this encounter Plan of Treatment Date Type Specialty Care Team Description 04/08/2020 Routine Obstetrics & Mcqueen, She Vargas MD Visit Gynecology [address] [place] [address] DR. [place], [place] [address] [phone] Health Maintenance Due Date Last Done Comments VARICELLA VACCINES (1 of 2 11/08/1996 - 2-dose childhood series) Depression Screening 2007 DTaP,Tdap,and Td Vaccines 11/08/2014 01/01/2010 (2 - Tdap) HPV VACCINES (2 - 3-dose 10/05/2015 09/07/2015 series) PAP SMEAR 11/08/2016 INFLUENZA VACCINE (#1) 2020 CHLAMYDIA SCREENING 03/22/2021 03/22/2020, 09/07/2015, 09/22/2014, Additional history exists PNEUMOCOCCAL 0-64 YEARS Aged Out No longe r eligible COMBINED SERIES based on patient 's age to complete this topic documented as of this encounter Results Not on filedocumented in this encounter Insurance Payer Benefit Plan Subscriber ID Effective Phone Address Typ e / Group Dates [facility] [id number] 2019-Prese [phone] [address] PPO/POS [id number] [place] [address] [facility] [id number] 2014-Pres [phone] [address] Med icaid ent [address] [place] [address] [facility] FAMILY FAMILY [id number] 2014-Pres [address] Ag ency [employer]ANN[employer]ANN[employer] ent [address] [place], [place] [phone] documented as of this encounter
--- OUTSIDE RECORDS SUMMARY | 2020-05-31 11:09 | XMS REPORT | Summary of Care ---
:1995 Author Organization [facility] - [facility] Address [address] [place] [address] Care Team Providers Name Role Phone Pcp, Does Not Have A Primary Care Provider Reason for Visit Reason Comments New OB Visit Encounter Details Date Type Department Care Team Description 03/19/2020 Initial [facility] Women's McqueenShe am, MD Abdominal pain, left lower quadrant (Claribel patricio Dx); Visit Healthcare- [address] [place] [address] examination or test, positive result [facility] [address] [place] [address], [address] [place] [phone] Allergies Active Allergy Reactions Severity Noted Date Comments Penicillins Unknown - See comments 01/01/2013 documented as of this encounter (statuses as of 03/30/2020) Medications Medication Sig Dispensed Refills Start Date End Date Status traMADOL (ULTRAM) Take 1 tablet by mouth every 6 (six) hours as needed for Pain (scale 4-6). Tato Johnson PA-C / Wyatt Dias MD 20 tablet 0 06/04/2016 Discontinued 50 mg tablet JOSE# [id number] DPS# [id number] (Patient [place] Lic.# [id number] NPI# [id number] Reported) silver Apply to 25 g 1 [...] as of this encounter (statuses as of 03/30/2020) Active Problems Problem Noted Date Obesity (BMI 30-39.9) 03/19/2020 Abdominal pain, left lower quadrant 03/19/2020 examination or test, positive result 020 Estimated Date of Delivery Comments Yes 11/23/2020 Based on last menstr ual period of 02/17/2020 (Exact Date) documented as of this encounter (statuses as of 03/30/2020) Resolved Problems Problem Noted Date Resolved Date Contraceptive management 09/08/2015 03/19/2020 Well woman exam 09/08/2015 03/19/2020 Overweight 09/08/2015 03/19/2020 Dysmenorrhea 09/08/2015 03/19/2020 Irregular menstrual cycle 10/14/2014 09/08/2015 Encounter for Nexplanon removal 10/14/2014 03/19/20 20 History of ovarian cyst 06/24/2014 09/08/2015 Rubella immune 01/01/2013 09/08/2015 documented as of this encounter (statuses as of 03/30/2020) Immunizations Name Administration Dates Next Due HPV [...] Specified) Past Surgical History: Procedure Laterality Date AL REMOVAL OF TONSILS,<12 Y/O 2014 Social History [...] file Gets together: Not on file Attends rastafari service: Not on file Active member of [...] Care Team Description 04/08/2020 Routine Obstetrics & She Mcqueen MD Visit Gynecology [address] [place] [address] DR. [place] [place] [address] [phone] Name Type Priority Associated Diagnoses Date/Ti me LAB ONLY PAP LAB Routine examination or 11:22 AM CDT SMEAR-LIQUID BASED test, positive result Name Type Priority Associated Diagnoses Order S chedule HCG, QUANTITATIVE, LAB Routine examination or 48 hours for 3 test, positive result Occurr ences starting 03/19/2020 unti l 04/19/2020, 2 c ompleted Health Maintenance Due Date Last Done Comments [...] Name Priority Date/Time Associated Diagnosis Comme nts PAP SMEAR-LIQUID Routine 03/19/2020 11:22 BASED-CP AM CDT examination or test, positive result POCT URINALYSIS W/O Routine 03/19/2020 Results for this SPECIFIC GRAVITY examination or test, pro cedure are in positive result the results section. POCT TEST Routine 03/19/2020 Results for this examination or test, procedu re are in positive result the results section. documented in this encounter Results HCG, QUANTITATIVE, (03/24/2020 8:51 AM CDT) Pathologist [facility] BETA HCG 380.19 Non- female [facility] ITAL and male patients: LABORATORY <5 mIU/mL Specimen Blood Narrative Performed At [facility] LABORATORY Gestational Age Range (mIU/mL) 1-10 Weeks 4 4-154813 11-15 Weeks 78127-172576 16-22 Weeks 7480-737268 23-40 Weeks 1531-115231 Biotin has been reported to cause a negative bias, interpret results relative to patient's use of biotin. Performing Organization Address City/State/Zipcode Phone Number [facility] CLIA: [id number] [place] [address] GC & CHLAMYDIA AMPLIFIED ASSAY (03/22/2020 8:25 AM CDT) Pathologist [facility] C. trachomatis Nucleic Negative Negative [facility] LABORATORY Acid SERVICES N. gonorrhoeae Nucleic Negative Negative [facility] LABORATORY Acid SERVICES Specimen Urine - Urine, First Catch (First Void) Narrative Performed At [facility] results are dependent on adequate specimen [facility] SERVICES collection. A positive result obtained from a patient after therap eutic treatment cannot be interpreted as indicating the pres ence of viable organisms. For patients on whom a false po sitive result may have adverse psychosocial impact, retesting is advised. Indeterminate: Unable to generate a valid test result on this specimen. Please submit a new specimen for repe at testing if clinically indicated. Chlamydia trachomatis/Neisseria gonorrhoeae nucleic ac id amplification testing (NAAT) has not been validated fo r medico-legal specimens (sexual abuse in samir-pubertal and pre-pubertal children, sexual assault, and legal cases ). Culture for Chlamydia trachomatis and/or Neisseria gonorrhoeae from clinically appropriate sites is the m ethod of choice in these cases. Results from this testing should be interpreted in conjunction with other laboratory and clinical data available to the clinician. For females in general, a urine specimen is a second-l ine option because it is considered less sensitive than a cervical swab for Chlamydia trachomatis and/or Neisser ia gonorrhoeae NAAT. Performing Organization Address City/[facility] [email or web address] Phone Number [facility] LABORATORY SERVICES CLIA: [id number] [place] [address] [place] [address] HCG, QUANTITATIVE, (03/22/2020 8:24 AM CDT) Pathologist [facility] BETA HCG 156.39 Non- female [facility] ITAL and male patients: LABORATORY <5 mIU/mL Specimen Blood Narrative Performed At [facility] LABORAT[facility] Gestational Age Range (mIU/mL) 1-10 Weeks 4 4-953404 11-15 Weeks 65812-729721 16-22 Weeks 7480-509622 23-40 Weeks 1531-272704 Biotin has been reported to cause a negative bias, interpret results relative to patient's use of biotin. Performing Organization Address City/State/[facility] [email or web address] Phone Number [facility] CLIA: [id number] [place] [address] [place] [address] WORKUP, BLOOD BANK (03/19/2020 11:43 AM CDT) Pathologist Sig [facility] ABO & RH O POSITIVE LAB Comment: Performed at [facility] Laboratory Services - [facility] Blood Bank [address] [place] [address] Toll Free: [phone] CLIA No. [id number] IAT Negative LAB Comment: Performed at [facility] Laboratory Services - [facility] Blood Bank [address] [place] [address] Toll Free: [phone] CLIA No. [id number] Specimen Blood - [facility] Performing Organization Address City/State/Zipcode Phone Number BLD LAB CBC WITH DIFF (03/19/2020 11:43 AM CDT) [facility] WBC 13.37 (H) 4.30 - 11.10 [facility] 10*3/L HOSPITAL LABORATORY RBC 4.91 3.93 - 5.25 [facility] 10*6/L HOSPITAL LABORATORY HGB 15.1 (H) 11.6 - 15.0 [facility] g/dL [facility] LABORATORY HCT 44.3 35.7 - 45.2 % [facility] MCV 90.2 80.6 - 95.5 fL [facility] MCH 30.8 25.9 - 32.8 pg [facility] MCHC 34.1 31.6 - 35.1 [facility] g/dL [facility] RDW-SD 39.6 39.0 - 49.9 fL [facility] RDW-CV 12.0 12.0 - 15.5 % [facility] LABOR[facility] PLT 333 166 - 358 [facility] 10*3/L [facility] LABORATORY MPV 10.4 9.5 - 12.9 fL [facility]OR[facility] NRBC/100 WBC 0.0 0.0 - 10.0 /100 [facility] WBCs [facility] LABORAT[facility] NRBC x10^3 <0.01 10*3/L [facility] LAB[facility] GRAN MAT (NEUT) % 57.5 % [facility] IMM GRAN % 0.40 % [facility] LYMPH % 32.3 % [facility] MONO % 8.3 % [facility] EOS % 1.3 % [facility] BASO % 0.2 % [facility] GRAN MAT x10^3(ANC) 7.67 (H) 1.88 - 7.09 [facility] 10*3/uL [facility] LABORATORY IMM GRAN x10^3 0.06 0.00 - 0.06 [facility] 10*3/uL HOSPITAL LABORATORY LYMPH x10^3 4.32 (H) 1.32 - 3.29 [facility] 10*3/uL [facility] LABORATORY MONO x10^3 1.11 (H) 0.33 - 0.92 [facility] 10*3/uL [facility] LABORATORY EOS x10^3 0.18 0.03 - 0.39 [facility] 10*3/uL [facility] LABOR[facility] BASO x10^3 0.03 0.01 - 0.07 [facility] 10*3/uL [facility] LABORATORY Specimen Blood Performing Organization Address City/[facility]/Zipcode Phone Number [facility] CLIA: [id number] [place] [address] LABORATORY [address] [facility] HCG, QUANTITATIVE, (03/19/2020 11:43 AM CDT) Pathologist Sig nature BETA HCG 62.85 Non- female [facility] ITAL and male patients: <5 LABORATORY mIU/mL Specimen Blood Narrative Performed At [facility] LABORATORY Gestational Age Range (mIU/mL) 1-10 Weeks 4 4-373233 11-15 Weeks 30331-472147 16-22 Weeks 7480-523079 23-40 Weeks 1531-214143 Biotin has been reported to cause a negative bias, interpret results relative to patient's use of biotin. Performing Organization Address [facility] [email or web address] Phone Number [facility] CLIA: [id number] [place] [address] [place] [address] PAP Smear-Liquid Based (03/19/2020 11:22 AM CDT) Specimen Swab - CERVIX Performing Organization Address City/[facility]/Zipcode Phone Number [facility] LABORATORY SERVICES CLIA: [id number] [place] [address] [place] [address] POCT URINALYSIS W/O SPECIFIC GRAVITY (03/19/2020) Pathologist [...] Effective Dates Phone Address Type / Group [facility] [id number] 2019-Lindsay [phone] [address] PPO/POS [place] t 7 [id number] [place] [address] [phone] (Work) documented as of this encounter"
--- OUTSIDE RECORDS SUMMARY | 2020-05-31 11:09 | XMS REPORT | Summary of Care ---
:1995 Author Organization [facility] Address [address] [place] [address] Care Team Providers Name Role Phone Pcp, Does Not Have A Primary Care Provider Reason for Visit Reason Comments LAB Encounter Details Date Type Department Care Team Description 03/31/2020 Skirt Panel Assembler Visit [facility] She Mcqueen MD [address] [place] [address] [address] [place] [address] Professional Office 2, [facility] Lab examination or Building Phlebotomy test, po sitive Lab result Professional Office Building [address] [place] [address] , [address] [place] [address] Allergies Active Allergy Reactions Severity Noted Date Comments Penicillins Unknown - See comments 01/01/2013 documented as of this encounter (statuses as of 03/31/2020) Medications No known medicationsdocumented as of this encounter (statuses as of 03/31/2020) Active Problems Problem Noted Date Obesity (BMI 30-39.9) 03/19/2020 Abdominal pain, left lower quadrant 03/19/2020 examination or test, positive result 020 Estimated Date of Delivery Comments Yes 11/23/2020 Based on last menstr ual period of 02/17/2020 (Exact Date) documented as of this encounter (statuses as of 03/31/2020) Resolved Problems Problem Noted Date Resolved Date Contraceptive management 09/08/2015 03/19/2020 Well woman exam 09/08/2015 03/19/2020 Overweight 09/08/2015 03/19/2020 Dysmenorrhea 09/08/2015 03/19/2020 Irregular menstrual cycle 10/14/2014 09/08/2015 Encounter for Nexplanon removal 10/14/2014 03/19/20 20 History of ovarian cyst 06/24/2014 09/08/2015 Rubella immune 01/01/2013 09/08/2015 documented as of this encounter (statuses as of 03/31/2020) Immunizations Name Administration Dates Next Due HPV [...] this encounter Nursing Notes Mary Mahan - 03/31/2020 11:00 AM CDT Venipuncture collection performed by clean technique on the right anticubitus. Total of 1 attempts were made. Slight pressure and a bandage/dressing were applied to the site(s). The patient experiencedno complications. The following specimens were processed according to instructions and sent to [facility] laboratories per lab order on 03/31/20: LT BLUE SST 1 RED LAV PPT DK GREEN (LiHep) DK GREEN (SodH) PUENTE DK BLUE (K2) DK BLUE (S) ACD Blood Culture NIPT/NTD documented in this encounter Plan of Treatment Date Type Specialty Care Team Description 04/02/2020 Skirt Panel Assembler Visit Phlebotomy 2, [facility] Lab 04/05/2020 Skirt Panel Assembler Visit Phlebotomy 2, [facility] Lab 04/08/2020 Routine Visit Obstetrics & Mcqueen, She Vargas MD Gynecology [address] [place] [address] [address]. [address] [place], [place] [address] [phone] Health Maintenance Due Date Last Done Comments VARICELLA VACCINES (1 of 2 11/08/1996 - 2-dose childhood series) Depression Screening 2007 DTaP,Tdap,and Td Vaccines 11/08/2014 01/01/2010 (2 - Tdap) HPV VACCINES (2 - 3-dose 10/05/2015 09/07/2015 series) INFLUENZA VACCINE (#1) 2020 CHLAMYDIA SCREENING 03/22/2021 03/22/2020, 09/07/2015, 09/22/2014, Additional history exists PAP SMEAR 03/19/2023 03/19/2020 PNEUMOCOCCAL 0-64 YEARS Aged Out No longe r eligible COMBINED SERIES based on patient 's age to complete this topic documented as of this encounter Results Not on filedocumented in this encounter Visit Diagnoses Diagnosis examination or test, positive result documented in this encounter Insurance Payer Benefit Plan Subscriber ID Effective Dates Phone Address Type / Group BCBS [facility] [id number] 2019-Lindsay [phone] [address] PPO/POS [place] t [id number] [place] [address] [phone] (Work) documented as of this encounter
--- OUTSIDE RECORDS SUMMARY | 2020-05-31 11:09 | XMS REPORT | Summary of Care ---
:1995 Author Organization [facility] Address [address] [place] [address] Care Team Providers Name Role Phone Pcp, Does Not Have A Primary Care Provider Reason for Visit Reason Comments LAB Encounter Details Date Type Department Care Team Description 03/24/2020 Inspector Fuel Hose Visit [facility] She Mcqueen MD [address] [place] [address] [address] [place] [address] Professional Office 2, [facility] Lab examination or Building Phlebotomy test, po sitive Lab result Professional Office Building [address] [place] [address] , [address] [place] [address] Allergies Active Allergy Reactions Severity Noted Date Comments Penicillins Unknown - See comments 01/01/2013 documented as of this encounter (statuses as of 03/24/2020) Medications No known medicationsdocumented as of this encounter (statuses as of 03/24/2020) Active Problems Problem Noted Date Obesity (BMI 30-39.9) 03/19/2020 Abdominal pain, left lower quadrant 03/19/2020 examination or test, positive result 020 Estimated Date of Delivery Comments Yes 11/23/2020 Based on last menstr ual period of 02/17/2020 (Exact Date) documented as of this encounter (statuses as of 03/24/2020) Resolved Problems Problem Noted Date Resolved Date Contraceptive management 09/08/2015 03/19/2020 Well woman exam 09/08/2015 03/19/2020 Overweight 09/08/2015 03/19/2020 Dysmenorrhea 09/08/2015 03/19/2020 Irregular menstrual cycle 10/14/2014 09/08/2015 Encounter for Nexplanon removal 10/14/2014 03/19/20 20 History of ovarian cyst 06/24/2014 09/08/2015 Rubella immune 01/01/2013 09/08/2015 documented as of this encounter (statuses as of 03/24/2020) Immunizations Name Administration Dates Next Due HPV [...] this encounter Nursing Notes Mary Mahan - 03/24/2020 10:30 AM CDT Venipuncture collection performed by clean technique on the right anticubitus. Total of 1 attempts were made. Slight pressure and a bandage/dressing were applied to the site(s). The patient experiencedno complications. The following specimens were processed according to instructions and sent to [facility] laboratories per lab order on 03/24/20: LT BLUE SST 1 RED LAV PPT DK GREEN (LiHep) DK GREEN (SodH) PUENTE DK BLUE (K2) DK BLUE (S) ACD Blood Culture NIPT/NTD documented in this encounter Plan of Treatment Date Type Specialty Care Team Description 03/24/2020 Appointment Radiology She Mcqueen M D [address] [place] [address] [address] [place], [place] [address] [phone] 04/08/2020 Routine Visit Obstetrics & She Mcqueen MD Gynecology [address] [place] [address] [address]. [address] [place], [place] [address] [phone] Name Type Priority Associated Diagnoses Date/Ti me HCG, QUANTITATIVE, LAB Routine examination or 03/24/2020 8:51 AM CDT test, positive result Health Maintenance Due Date Last Done Comments [...] Effective Dates Phone Address Type / Group [facility] [id number] 2019-Lindsay [phone] [address] PPO/POS [place] t 7 [id number] [place] [address] [phone] (Work) documented as of this encounter
--- OUTSIDE RECORDS SUMMARY | 2020-05-31 11:09 | XMS REPORT | Summary of Care ---
:[address] [facility] Address [address] [place] [address] Care Team Providers Name Role Phone Pcp, Does Not Have A Primary Care Provider Reason for Visit Radiology Services (Routine) Status Reason Specialty Diagnoses / Referred By Referred To Procedures Contact Contact New Request Diagnostic Diagnoses Abdominal pain, left lower quadrant She Mcqueen, Radiology Procedures US FIRST TRIMESTER LESS THAN 14 WEEKS WITH TRANSVAGINAL US PELVIS COMPLETE WITH TRANSVAGINAL MD [address] [place] [address] [address]. [address] [place] [address] Encounter Details Date Type Department Care Team Description 03/24/2020 Hospital Encounter [facility] Anoop Mondragon MD Arrived [facility] [address] [place] [address] [place] [address] [address] [place] [address] [phone] Allergies Active Allergy Reactions Severity Noted Date [...] filedocumented in this encounter Plan of Treatment Date Type Specialty Care Team Description 04/08/2020 Routine Obstetrics & Mcqueen, She Vargas MD Visit Gynecology [address] [place] [address] DR. [address] [place], [facility] 15 [phone] Health Maintenance Due Date Last Done Comments [...] encounter Procedures Procedure Name Priority Date/Time Associated Comments Diagnosis US FIRST Routine 03/24/2020 5:54 Abdominal pain, Re sults for this TRIMESTER LESS THAN PM CDT left lower quadrant p rocedure are in 14 WEEKS WITH the results TRANSVAGINAL section. documented in this encounter Results US FIRST TRIMESTER LESS THAN 14 WEEKS WITH TRANSVAGINAL (03/24/2020 5:54 PM CDT) Specimen Impressions Performed At PACS/VR/DOSE No evidence of intrauterine or extrauter ine . Findings may represent very early . Recommend correlation with serial beta hCG and close follow-up ultrasound as clinic ally indicated. Left ovarian corpus luteal cyst. Thick-walled prominently anechoic left o varian cystic structure with low-level eccentric internal echoes, likely a retracti ng clot suggesting a hemorrhagic cyst. Preliminary Report Dictated by Resident: Martha Aranda I, Cristi Tamez MD., have review ed this study and agree with the above report. Narrative Performed At TRANSABDOMINAL AND TRANSVAGINAL PELVIC U LTRASOUND PACS/VR/DOSE HISTORY: 24-year-old female with positiv e test and left lower quadrant pain BETA hC mL LMP: 02/17/2020 TECHNIQUE: Grayscale and color Doppler u ltrasound imaging of the pelvis utilizing transabdominal and transvagina l approach was performed. COMPARISON: None. FINDINGS: The uterus measures 8.4 x 3.5 x 4.7 cm. The endometr ial stripe measures a normal 0.8 cm. No evidence of intrauterine or extraute rine gestational sac, pole or heart tones. No yolk sac i s seen. The right ovary is normal size and measu res 2.4 x 1.4 x 1.9 cm. The left ovary is mildly enlarged measuring 6.4 x 3.4 x 4.0 cm and contains a predominantly hypoechoic thick-walled corpus luteal cyst with peripheral rim of vascularity measuring up to 2.6 cm. The left ov esperanza also contains a thick-walled anechoic cystic structure w ith layering low-level internal echoes, likely a retracting clot. The urinary bladder is distended but oth erwise unremarkable. Small volume of free fluid is present in the cul-de-sac. Small pocket of this fluid appears mildly complex but th is may be related to artifact rather than true finding. Cine series demonstrate rela tively simple fluid. Procedure Note [facility], Radiant Results Inft User - 2019 6:37 PM CDT TRANSABDOMINAL AND TRANSVAGINAL PELVIC ULTRASOUND HISTORY: 24-year-old female with positiv e test and left lower quadrant pain BETA hC mL LMP: 02/17/2020 TECHNIQUE: Grayscale and color Doppler u ltrasound imaging of the pelvis utilizing transabdominal and transvagina l approach was performed. COMPARISON: None. FINDINGS: The uterus measures 8.4 x 3.5 x 4.7 cm. The endometrial stripe measures a normal 0.8 cm. No evidence of intrauteri ne or extrauterine gestational sac, pole or heart tones. No yolk sac i s seen. The right ovary is normal size and measu res 2.4 x 1.4 x 1.9 cm. The left ovary is mildly enlarged measur ing 6.4 x 3.4 x 4.0 cm and contains a predominantly hypoechoic thick-walled corpus luteal cyst with peripheral rim of vascularity measuring up to 2.6 c m. The left ovary also contains a thick-walled anechoic cystic structure w ith layering low-level internal echoes, likely a retracting clot. The urinary bladder is distended but oth erwise unremarkable. Small volume of free fluid is present in the cul-de-sac. Small pocket of this fluid appears mildly complex but th is may be related to artifact rather than true finding. Cine series de monstrate relatively simple fluid. IMPRESSION No evidence of intrauterine or extrauter ine . Findings may represent very early . Recommen d correlation with serial beta hCG and close follow-up ultrasound as clinic ally indicated. Left ovarian corpus luteal cyst. Thick-walled prominently anechoic left o varian cystic structure with low-level eccentric internal echoes, lik sp a retracting clot suggesting a hemorrhagic cyst. Preliminary Report Dictated by Resident: Cristi Culp MD., have reviewe d this study and agree with the above report. Performing Organization Address City/State/Zipcode Phone Number PACS/VR/DOSE documented in this encounter Visit Diagnoses Diagnosis Abdominal pain, left lower quadrant documented in this encounter Insurance Payer Benefit Plan Subscriber ID Effective Dates Phone Address Type / Group BCBS [facility] [id number] 2019-Lindsay [phone] [address] PPO/POS [place] t 7 [id number] [place] [address] [phone] (Work) documented as of this encounter
[2020-05-31 12:33] LABS: Absolute Lymphocytes (CBC) 2.7 K/uL (0.7-4.9); Basophils % 0.4 % (0-1.3); Hematocrit 33.6 % (36.0-45.0); Lymphocytes % 22.7 % (15.3-44.8); MPV 9.2 fL (7.6-11.3); RBC Red Blood Cell Count 3.85 M/uL (3.86-4.86)
--- NOTE | 2020-05-31 12:37 | RAD REPORT ---
EXAM DESCRIPTION: RAD - Chest Single View - 05/31/2020 11:55 am CLINICAL HISTORY: CHEST PAIN COMPARISON: February 2012 single-view TECHNIQUE: AP portable chest image was obtained 05/31/2020 11:55 am . FINDINGS: Lungs are clear. Heart and vasculature are normal. No measurable pleural effusion and no p neumothorax. No acute bony abnormality seen. No acute aortic findings suspected. No significant gaona e from comparison. IMPRESSION: No acute cardiopulmonary process.
[2020-05-31 12:46] LABS: Protime INR 1.03
[2020-05-31 12:54] LABS: ALT/SGPT 17 U/L (12-78); AST/SGOT 9 U/L (15-37); Albumin 2.8 g/dL (3.4-5.0); Alkaline Phosphatase 71 U/L (45-117); BUN Blood Urea Nitrogen 6 mg/dL (7-18); Bicarbonate 23 mmol/L (21-32); Bilirubin Direct < 0.1 mg/dL (0-0.2); Bilirubin Total 0.2 mg/dL (0.2-1.0); Glucose Level 129 mg/dL (74-106); Magnesium 1.6 mg/dL (1.8-2.4); NT PRO-BNP 44 pg/mL (<125); Potassium 3.3 mmol/L (3.5-5.1); Protein, Total 6.2 g/dL (6.4-8.2); Sodium Level 138 mmol/L (136-145); Troponin (Emerg Dept Use Only) < 0.02 ng/mL (0.0-0.045)
--- NOTE | 2020-05-31 14:30 | ER ---
Nurse's Notes [facility] Name: Odessa Ruiz Age: 24 yrs Sex: Female : 1995 Arrival Date: 05/31/2020 Time: 11:06 Bed 7 Private MD: Diagnosis: Chest pain, unspecified Presentation: 05/31 11:13 Chief complaint: Patient states: Midsternal chest pain started at 0300 today. Stabbing, ca1 heavy pain, intermittent, non-radiating. SOB with CP. at 14 weeks. Denies Hx of heart conditions, injury to chest, cough. Coronavirus screen: Client denies travel out of the [place] in the last 14 days. shortness of breath, Client presents with at least one sign or symptom that may indicate coronavirus-19. Standard/surgical mask placed on the client. Provider contacted for isolation considerations. The client reports previous COVID testing was negative. Date of collection: January 2020. Ebola Screen: Patient negative for fever greater than or equal to 101.5 degrees Fahrenheit, and additional compatible Ebola Virus Disease symptoms Patient denies exposure to infectious person. Patient denies travel to an Ebola-affected area in the 21 days before illness onset. No symptoms or risks identified at this time. Initial Sepsis Screen: Does the patient meet any 2 criteria? No. Patient's initial sepsis screen is negative. Does the patient have a suspected source of infection? No. Patient's initial sepsis screen is negative. Risk Assessment: Do you want to hurt yourself or someone else? Patient reports no desire to harm self or others. Onset of symptoms was May 31, 2020 at 03:00. 11:13 Method Of Arrival: Ambulatory ca1 11:13 Acuity: DAVY 3 ca1 Triage Assessment: 11:15 General: Appears in no apparent distress. uncomfortable, Behavior is cooperative, bp appropriate for age, anxious. Pain: Complains of pain in chest. EENT: No deficits noted. Neuro: No deficits noted. Cardiovascular: Reports chest pain, Rhythm is sinus rhythm. Respiratory: No deficits noted. GI: No signs and/or symptoms were reported involving the gastrointestinal system. : No signs and/or symptoms were reported regarding the genitourinary system. Derm: No deficits noted. Musculoskeletal: No deficits noted. STRATEGY INTERN: 11:16 LMP 02/17/2020 ca1 Historical: - Allergies: 11:16 PENICILLINS; ca1 - PMHx: 11:16 PCOS; ca1 - PSHx: 11:16 Tonsillectomy; ca1 - Immunization history:: Adult Immunizations up to date, Hepatitis A vaccine is not up to date. - Social history:: Smoking status: Patient denies any tobacco usage or history of. Screenin:30 Abuse screen: Denies threats or abuse. Denies injuries from another. Nutritional bp screening: No deficits noted. Tuberculosis screening: No symptoms or risk factors identified. Fall Risk None identified. Assessment: 11:15 General: SEE TRIAGE NOTE. bp 12:05 Reassessment: Patient appears in no apparent distress at this time. Patient and/or bp family updated on plan of care and expected duration. Pain level reassessed. Patient is alert, oriented x 3, equal unlabored respirations, skin warm/dry/pink. LABS REDRAWN AND SENT. MD AWARE. 12:59 Reassessment: Patient appears in no apparent distress at this time. No changes from bp previously documented assessment. Patient and/or family updated on plan of care and expected duration. Pain level reassessed. Patient is alert, oriented x 3, equal unlabored respirations, skin warm/dry/pink. Pain: Denies pain. 14:49 Reassessment: Patient is alert, oriented x 3, equal unlabored respirations, skin aa5 warm/dry/pink. Vital Signs: 11:13 BP 113 / 76; Pulse 97; Resp 17 S; Temp 97.3(TE); Pulse Ox 100% on R/A; Weight 77.11 kg ca1 (R); Height 5 ft. 0 in. (152.40 cm) (R); Pain 6/10; 12:14 BP 106 / 63; Pulse 101; Resp 16; Pulse Ox 98% ; bp 12:59 BP 102 / 62; Pulse 89; Resp 17; Pulse Ox 99% ; bp 11:13 Body Mass Index 33.20 (77.11 kg, 152.40 cm) ca1 ED Course: 11:06 Patient arrived in ED. ag5 11:16 Triage completed. ca1 11:16 Miguel Aldana MD is Attending Physician. kdr 11:16 Arm band placed on right wrist. ca1 11:21 Jamin Burgess, JAVI is Primary Nurse. bp 11:30 Patient has correct armband on for positive identification. Placed in gown. Bed in low bp position. Call light in reach. Side rails up X2. Pulse ox on. NIBP on. 11:30 Inserted saline lock: 20 gauge in right antecubital area, using aseptic technique. bp Blood collected. 11:44 EKG done, by life support technician. reviewed by Miguel Aldana MD. em1 11:55 XRAY Chest (1 view) In Process Unspecified. EDMS 14:40 IV discontinued, intact, bleeding controlled, No redness/swelling at site. Pressure em1 dressing applied. 14:49 No provider procedures requiring assistance completed. IV d/c'd by testing and regulating technician. aa5 14:49 Patient maintains SpO2 saturation greater than 95% on room air. aa5 Administered Medications: No medications were administered Outcome: 14:29 Discharge ordered by . kdr 14:49 Discharged to home ambulatory. aa5 14:49 Condition: stable 14:49 Discharge instructions given to patient, Instructed on discharge instructions, follow up and referral plans. medication usage, Demonstrated understanding of instructions, follow-up care, medications, Prescriptions given X 1. 14:50 Patient left the ED. aa5 Signatures: Dispatcher [employer] EDMS Miguel Aldana MD MD kdr Isaac Arellano em1 Makenzie Florentino, RN RN aa5 Jamin Burgess, JAVI RN Selene Joiner RN RN ca1 [place] ag5
--- NOTE | 2020-05-31 14:30 | EDPHYS ---
Physician Documentation [facility] Name: Odessa Ruiz Age: 24 yrs Sex: Female : 1995 Arrival Date: 05/31/2020 Time: 11:06 Bed 7 Private MD: ED Physician Miguel Aldana HPI: 05/31 17:12 This 24 yrs old Female presents to ER via Ambulatory with complaints of Chest kdr Pain. 17:12 The patient or guardian reports chest pain that is located primarily in the substernal kdr area, mid-sternal area. The pain does not radiate. Associated signs and symptoms: Pertinent positives: nausea, shortness of breath, Pertinent negatives: abdominal pain, cough, diaphoresis, dizziness, headache, lower extremity pain, lower extremity swelling, lightheadedness, near syncope, palpitations, recent travel, syncope, vomiting. The chest pain is described as aching, sharp. Duration: The patient or guardian reports multiple episodes, that are intermittent, that wax and wane, with no pattern. Modifying factors: The symptoms are alleviated by nothing. the symptoms are aggravated by nothing. Severity of pain: At its worst the pain was moderate severe in the emergency department the pain has improved moderately. The patient has not experienced similar symptoms in the past. The patient has not recently seen a physician. SPANISH TRANSLATOR: 11:16 LMP 02/17/2020 ca1 Historical: - Allergies: 11:16 PENICILLINS; ca1 - PMHx: 11:16 PCOS; ca1 - PSHx: 11:16 Tonsillectomy; ca1 - Immunization history:: Adult Immunizations up to date, Hepatitis A vaccine is not up to date. - Social history:: Smoking status: Patient denies any tobacco usage or history of. ROS: 17:12 Constitutional: Negative for fever, chills, and weight loss, Eyes: Negative for injury, kdr pain, redness, and discharge, Neck: Negative for injury, pain, and swelling, Respiratory: Negative for shortness of breath, cough, wheezing, and pleuritic chest pain, Abdomen/GI: Negative for abdominal pain, nausea, vomiting, diarrhea, and constipation, Back: Negative for injury and pain, : Negative for injury, bleeding, discharge, and swelling, MS/Extremity: Negative for injury and deformity, Skin: Negative for injury, rash, and discoloration, Neuro: Negative for headache, weakness, numbness, tingling, and seizure activity. Psych: Negative for depression, anxiety, suicide ideation, homicidal ideation, and hallucinations, Allergy/Immunology: Negative for hives, rash, and allergies, Endocrine: Negative for neck swelling, polydipsia, polyuria, polyphagia, and marked weight changes, Hematologic/Lymphatic: Negative for swollen nodes, abnormal bleeding, and unusual bruising. 17:12 Cardiovascular: Positive for chest pain, Negative for edema, orthopnea, palpitations. Exam: 17:12 Constitutional: This is a well developed, well nourished patient who is awake, alert, kdr and in no acute distress. Head/Face: Normocephalic, atraumatic. Eyes: Pupils equal round and reactive to light, extra-ocular motions intact. Lids and lashes normal. Conjunctiva and sclera are non-icteric and not injected. Cornea within normal limits. Periorbital areas with no swelling, redness, or edema. Neck: Trachea midline, no thyromegaly or masses palpated, and no cervical lymphadenopathy. Supple, full range of motion without nuchal rigidity, or vertebral point tenderness. No Meningismus. Chest/axilla: Normal chest wall appearance and motion. Nontender with no deformity. No lesions are appreciated. Cardiovascular: Regular rate and rhythm with a normal S1 and S2. No gallops, murmurs, or rubs. Normal PMI, no JVD. No pulse deficits. Respiratory: Lungs have equal breath sounds bilaterally, clear to auscultation and percussion. No rales, rhonchi or wheezes noted. No increased work of breathing, no retractions or nasal flaring. Abdomen/GI: Soft, non-tender, with normal bowel sounds. No distension or tympany. No guarding or rebound. No evidence of tenderness throughout. Back: No spinal tenderness. No costovertebral tenderness. Full range of motion. Skin: Warm, dry with normal turgor. Normal color with no rashes, no lesions, and no evidence of cellulitis. MS/ Extremity: Pulses equal, no cyanosis. Neurovascular intact. Full, normal range of motion. Neuro: Awake and alert, GCS 15, oriented to person, place, time, and situation. Cranial nerves II-XII grossly intact. Motor strength 5/5 in all extremities. Sensory grossly intact. Cerebellar exam normal. Normal gait. Psych: Awake, alert, with orientation to person, place and time. Behavior, mood, and affect are within normal limits. 19:16 ECG was reviewed by the Attending Physician. kdr Vital Signs: 11:13 BP 113 / 76; Pulse 97; Resp 17 S; Temp 97.3(TE); Pulse Ox 100% on R/A; Weight 77.11 kg ca1 (R); Height 5 ft. 0 in. (152.40 cm) (R); Pain 6/10; 12:14 BP 106 / 63; Pulse 101; Resp 16; Pulse Ox 98% ; bp 12:59 BP 102 / 62; Pulse 89; Resp 17; Pulse Ox 99% ; bp 11:13 Body Mass Index 33.20 (77.11 kg, 152.40 cm) ca1 MDM: 14:29 Patient medically screened. kdr 17:15 Data reviewed: vital signs, nurses notes, lab test result(s), radiologic studies. kdr Counseling: I had a detailed discussion with the patient and/or guardian regarding: the historical points, exam findings, and any diagnostic results supporting the discharge/admit diagnosis, lab results, radiology results, the need for outpatient follow up. 17:15 Special discussion: Based on the patient's history, exam, and Dx evaluation, there is kdr no indication for emergent intervention or inpatient Tx. It is understood by the patient/guardian that if the Sx's persist or worsen they need to return immediately for re-evaluation. 05/31 11:17 Order name: Basic Metabolic Panel; Complete Time: 14:24 kdr 05/31 11:17 Order name: CBC with Diff; Complete Time: 14:24 kdr 05/31 11:17 Order name: LFT's; Complete Time: 14:24 kdr 05/31 11:17 Order name: Magnesium; Complete Time: 14:24 kdr 05/31 11:17 Order name: NT PRO-BNP; Complete Time: 14:24 [facility] 05/31 11:17 Order name: PT-INR; Complete Time: 14:24 [facility] 05/31 11:17 Order name: Troponin (emerg Dept Use Only); Complete Time: 14:24 [facility] 05/31 11:17 Order name: XRAY Chest (1 view); Complete Time: 14:24 [facility] 05/31 11:17 Order name: EKG; Complete Time: kdr 05/31 11:17 Order name: Cardiac monitoring; Complete Time: kdr 05/31 11:17 Order name: EKG - Nurse/Tech; Complete Time: kdr 05/31 11:17 Order name: IV Saline Lock; Complete Time: kdr 05/31 11:17 Order name: Labs collected and sent; Complete Time: kdr 05/31 11:17 Order name: O2 Per Protocol; Complete Time: kdr 05/31 11:17 Order name: O2 Sat Monitoring; Complete Time: kdr EC:16 Rate is 86 beats/min. Rhythm is regular, Normal Sinus Rhythm with No ectopy. QRS [place] kdr is Normal. [place] interval is normal. QRS interval is normal. QT interval is normal. Clinical impression: Normal ECG. Administered Medications: No medications were administered Disposition: 05/31/20 14:29 Discharged to Home. Impression: Chest pain, unspecified. - Condition is Stable. - Discharge Instructions: Pain Without a Known Cause, Nonspecific Chest Pain, Hdwc-my-Gbdu. - Prescriptions for Tramadol 50 mg Oral Tablet - take 1 tablet by ORAL route every 8 hours as needed; 12 tablet. - Medication Reconciliation Form, Thank You Letter form. - Follow up: Private Physician; When: 2 - 3 days; Reason: If symptoms return, Recheck today's complaints, Continuance of care, Re-evaluation by your physician. - Problem is new. - Symptoms have improved. Signatures: Dispatcher [employer] EDSD Miguel Aldana MD MD kdr Makenzie Florentino RN RN aa5 Selene Valdez RN RN ca1 Corrections: (The following items were deleted from the chart) 14:50 14:29 05/31/2020 14:29 Discharged to Home. Impression: Chest pain, unspecified. aa5 Condition is Stable. Forms are Medication Reconciliation Form, Thank You Letter, Antibiotic Education, Prescription Opioid Use. Follow up: Private Physician; When: 2 - 3 days; Reason: If symptoms return, Recheck today's complaints, Continuance of care, Re-evaluation by your physician. Problem is new. Symptoms have improved. kdr
[2020-05-31 15:40] VITALS: TEMP 97.3
[2020-05-31 15:43] VITALS: BP 102/62; O2SAT 99
== END 2020-05-31 14:50 | disposition home or self-care (01) ==
LOC: ER 11:05
DX: R07.9 Chest pain, unspecified (principal); Z88.0 Allergy status to penicillin
CPT/HCPCS: 36415; 71045; 80048; 80076; 83735; 83880; 84484; 85025; 85610; 93005; 99285

== ENCOUNTER 2020-11-03 09:54 | Inpatient (IN) | payer BC ==
[~2020-11-03 09:54] MED LIST: Ringers Lactate 1,000 ML IV ONE
[2020-11-03] MEDS ORDERED: miSOPROStoL 100 MCG TAB VAG PRN (15:18)
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
[2020-11-03] MEDS ORDERED: CARBOPROST TROME 250 MCG/ML IM PRN (15:46)
[2020-11-03] MEDS ORDERED: BUTORPHANOL 1 MG/ML INJ IV PRN (15:46)
[2020-11-03] MEDS ORDERED: PROMETHAZINE INJ 25 MG/ML AMP IM PRN ×2 (15:46)
[2020-11-03] MEDS ORDERED: Ringers Lactate 1,000 ML IV PRN (15:46)
[2020-11-03] MEDS ORDERED: OXYTOCIN/LR 20 UNIT/1,000 ML BAG IV SCH (16:00)
[2020-11-03] MEDS ORDERED: Ringers Lactate 1,000 ML IV SCH (16:00)
[2020-11-03 16:19] LABS: Urine Appearance CLOUDY (Clear); Urine Bilirubin NEGATIVE (Negataive); Urine Blood TRACE (Negative); Urine Color YELLOW (Yellow); Urine Glucose NEGATIVE (Negative); Urine Protein NEGATIVE (Negative); Urine Urobilinogen 0.2 mg/dL (0.2-1.0); Urine pH 7.5 (5.0-7.0)
[2020-11-03 16:21] LABS: Urine Microscopic Reflex ORDER UMIC
[2020-11-03 16:35] VITALS: BMI 35.9
[2020-11-03 16:37] LABS: Urine Bacteria <20 /HPF (<20); Urine RBC <5 /HPF (NONE SEEN)
[2020-11-03 16:42] LABS: Absolute Lymphocytes (CBC) 3.8 K/uL (0.7-4.9); Basophils % 0.3 % (0-1.3); Hematocrit 37.5 % (36.0-45.0); Lymphocytes % 24.1 % (15.3-44.8); MPV 11.5 fL (7.6-11.3); RBC Red Blood Cell Count 4.28 M/uL (3.86-4.86)
[2020-11-03] MEDS ORDERED: ZOLPIDEM TARTRATE 5 MG TABLET PO ONE (19:23)
--- NOTE | 2020-11-03 20:01 | PREOPHP ---
Date of Admission: 11/03/2020 History Of Present Illness: A 24-year-old 2, para 0, 1 miscarriage, 37 weeks and 1 day, gest ational diabetes, not in good control, smoker also during the . Pros and cons of induction at this stage is discussed. We have decided to proceed. Cytotec 50 mcg inserted. We will insert an other 50 mcg in 6 hours if needed up to 3 total doses. Full discussion, pros and cons of Cytotec and possible risk of complications. Family History: Negative. Past Surgery: Negative. Allergies: ALLERGIC TO PENICILLIN. NO STDS PRIOR TO ADMISSION. SHE WAS A LIGHT SMOKER DURING HER . Physical Examination: HEENT: Clear. Pupils equal, round, and reactive to light and accommodation. Conjunctivae well perf used. No oral, lingual, or buccal lesions. Chest and Lungs: Clear. Heart: Without murmurs, thrills, heaves, or rubs. Breasts: Without masses on previous visits. Abdomen: Term size, baby is vertex, 1.5 cm cervix, posterior 40 to 50% effaced, soft, vertex, well a pplied. Admission and labor talk given. Anticipate delivery sometime tomorrow. XANDER/WERNER Voice ID: [id number]
[2020-11-04 03:05] LABS: RPR (Rapid Plasma Reagin) NON-REACT (NON-REACT)
[2020-11-04] MEDS ORDERED: LIDOCAINE 1% MPF 30 ML VIAL ONE (08:44)
[2020-11-04] MEDS ORDERED: FENTANYL CITR 100 MCG/2 ML IV ONE (09:37)
[2020-11-04] MEDS ORDERED: ROPIVACAINE HCL 0.2% 20ML AMP IV ONE (09:37)
[2020-11-04] MEDS ORDERED: BUPIVACAINE 0.25% PF 10 ML VIAL IJ PRN (09:37)
[2020-11-04] MEDS ORDERED: FENTANYL/BUPIVACAINE/NS/PF 200 MCG/100 ML BAG EP PRN (09:37)
--- NOTE | 2020-11-04 10:59 | PN ---
The patient is now 1.5 almost 2 cm, 60% effaced, vertex well applied, rupture membranes, clear fluid. FHT is normal reactive. She has not requested any analgesics yet, knows that she will now get into more active labor. She will try to wait until she is 4 or 5 cm, get the epidural, but we will see h ow that goes. Full labor talk given. Anticipate delivery sometime later today. XANDER/WERNER Voice ID: [id number] Report ID: [id number]
--- NOTE | 2020-11-04 12:38 | PN ---
The patient requested epidural at 3 cm. She is now 6 cm, 90% effaced, vertex, right at 0 station. I t is hard to tell position of the head. Baby looks good on the monitor. She is so numb with the epi dural, she can't really move her left leg. We will see what happens in the next hour to see if she c an push effectively with the epidural, but making her so numb, we will let her do that. Otherwise, w e will probably have to cut the epidural back a little bit at 12 cc an hour, which is quite a bit for somebody her heights, will probably move back to 10 or even 8. Right now, we will leave alone. Darian hernandezpate more rapid progress from this point forward. XANDER/WERNER Voice ID: [id number] Report ID: [id number]
[2020-11-04] MEDS ORDERED: ACETAMINOPHEN 500 MG TAB PO PRN (13:04)
[2020-11-04] MEDS ORDERED: Oxycodone HCl/Acetaminophen 1 TAB TAB PO PRN ×2 (13:04)
[2020-11-04] MEDS ORDERED: BISACODYL 10 MG RECTAL SUPP RC PRN (13:04)
[2020-11-04] MEDS ORDERED: DIPHENHYDRAMINE 25 MG TAB/CAP PO PRN (13:04)
[2020-11-04] MEDS ORDERED: DOCUSATE NA/SENNA CONC 1 TAB PO PRN (13:04)
[2020-11-04] MEDS ORDERED: OXYTOCIN/LR 20 UNIT/1,000 ML BAG IV SCH (14:00)
[2020-11-04] MEDS: IBUPROFEN 600 MG TAB PO PRN (18:04)
[2020-11-04] MEDS ORDERED: Ringers Lactate 2,000 ML IV ONE (18:13)
--- NOTE | 2020-11-04 22:47 | OP ---
Surgeon: Uli Meyer MD A 24-year-old 2, para 0, 37 weeks and 1 day, had Cytotec inserted yesterday and then rupture of membranes this morning at 1.5 cm, clear fluid. The patient is a gestational diabetic and not in g ood control. During the labor, received Stadol 1 mg IV, Phenergan 25 mg IM. At 3 cm, requested and received epidural anesthesia. The patient went rapidly to complete, second stage of 15 minutes or le ss, spontaneous vaginal delivery of a 5 pounds and 14 ounce female, Apgars 9 and 9. Small second-deg ree laceration simulating episiotomy, repaired with 2-0 chromic. Schultze delivery of the placenta. Placenta without any kind of major problems. Estimated blood loss 300 cc or less. Rh positive, imm une to rubella. Negative strep. Negative COVID. Tolerated all procedures well. Dr. Nunez will be notified of babies delivery. Final Diagnoses: Intrauterine gestation, 37 weeks and 1 day, Cytotec inserted, vaginal delivery, epi dural anesthesia, gestational diabetes, not well controlled. NBC/MODL Voice ID: [id number] Report ID: [id number]
[2020-11-05] MEDS: IBUPROFEN 600 MG TAB PO PRN ×2 (04:25→14:00)
--- NOTE | 2020-11-05 12:33 | DS ---
Hospital Course: Odessa Ruiz is a 24-year-old 2, para 0, 37 weeks 1 day, had Cytotec inserted, 37 weeks 2 days. Delivered of a 5 pounds 14 ounces female, Apgars 9 and 9. Epidural anest hesia. Small second-degree laceration repaired with 2-0 chromic. Schultze delivery of the placenta. Less than 300 cc blood loss. Placenta inspected and noted to be intact and normal. COVID negative . Beta strep negative. Rh positive. Post afebrile, ambulating and voiding. Baby is doing q uite well. The patient will probably be dismissed later this afternoon. To report back to my office in 6 weeks for followup. To report any temperature elevation of 100 degrees or greater, severe pain , heavy bleeding, or any other type of abnormality. Requests no analgesics on dismissal. Tdap has b een offered during the and again today. No post epidural problems. The patient has a spot ty rash several places on her body that she got after mowing, it is a nonspecific reaction. Caladryl lotion, Benadryl, and if she gets worse, we will give her Medrol Dosepak. Right now though it does not look sufficient at least severe to use steroids. Final Diagnoses: Intrauterine gestation with gestational diabetes, not well controlled. Cytotec for labor induction. Vaginal delivery. Epidural anesthesia. Tdap offered. XANDER/WERNER Voice ID: [id number] Report ID: [id number]
[2020-11-05] MEDS ORDERED: Tdap (Diph,Pertuss(Acell),Tet Vac) 0.5 ML SYR IMVAC ONE (13:53)
[2020-11-05 17:56] VITALS: BP 124/66; TEMP 97.8
[2020-11-07 17:55] LABS: HBsAG Nonreactive (Nonreactive)
== END 2020-11-05 17:25 | disposition home or self-care (01) | DRG 807 ==
LOC: 2ND-WC 15:36
PROVIDERS: ADMIT Specialist; ATTEND Specialist
PROC: 10E0XZZ Delivery of Products of Conception, External Approach (ICD-10-PCS; principal; 2020-11-04)
PROC: 0KQM0ZZ Repair Perineum Muscle, Open Approach (ICD-10-PCS; 2020-11-04)
PROC: 10907ZC Drainage of Amniotic Fluid, Therapeutic from Products of Conception, Via Natural or Artificial Opening (ICD-10-PCS; 2020-11-04)
PROC: 3E0P7VZ Introduction of Hormone into Female Reproductive, Via Natural or Artificial Opening (ICD-10-PCS; 2020-11-04)
DX: O71.5 Other obstetric injury to pelvic organs (principal); Z37.0 Single live birth; O70.1 Second degree perineal laceration during delivery; O24.429 Gestational diabetes mellitus in childbirth, unspecified control; Z3A.37 37 weeks gestation of pregnancy; Z23 Encounter for immunization; Z20.822 Contact with and (suspected) exposure to COVID-19
CPT/HCPCS: 36415; 81003; 81015; 85025; 86592; 86901; 87086; 87088; 87340; 90471; 90715; J0595; J2550; J2590; J3010; J7120; U0003

== ENCOUNTER 2021-12-02 17:02 | Emergency (ER) | payer BC, OTHER ==
--- OUTSIDE RECORDS SUMMARY | 2021-12-02 17:06 | XMS REPORT | Continuity of Care Document ---
:1995 Author Organization [facility] t Address [address] [place] [address] [address] [place] [address] Care Team Providers Name Role Phone KWABENA MOORE Attending Clinician Unavailable 2, Lab Attending Clinician Unavailable Kwabena Moore MD Attending Clinician ADUM, L Attending Clinician Unavailable Doctor Unassigned, Name Attending Clinician Unavailable BRANDIN III, A Attending Clinician Unavailable Physician, Primary or Family Admitting Clinician Unavailabl e Payers Payer Name Policy Type Policy Number Effective Date Expiration Date S evangelinakarly [facility] [id number] 2019 00:00:00 Problems Condition Condition Condition Status Onset Resolution Last Treating Co mments Source Name Details Category Date Date Treatment Clinician Date Obesity Obesity Disease Active Univers (BMI (BMI 8-28 ity of 30-39.9) 30-39.9) 00:00: [place] 00 Medical Branch Abdominal Abdominal Disease Active Uni vers pain, left pain, left 8-28 it y of lower lower 00:00: [place] quadrant quadrant 00 Medica l Branch Disease Active Uni vers examinatio examinatio 03-19 it y of n [place] test, [place] positive 00 Med[place] result result Branch Well woman Well woman Disease Active U nivers exam exam 2-17 ity of 00:00: [place] 00 Medical Branch Overweight Overweight Disease Active U nivers 2-17 ity of 00:00: [place] 00 Medical Branch Dysmenorrh Dysmenorrh Disease Active U nivers ea ea 2-17 ity of 00:00: [place] 00 Medical Branch Encounter Encounter Disease Active Uni vers for for 3-25 ity of Nexplanon [place]plan[place] Allergies, Adverse Reactions, Alerts Allergy Allergy Status Severity Reaction(s) Onset Inactive Treating Comm ents Source Name Type Date Date Clinician Penicill DA Active U 2012-07 [facility] [place] Penic[place] DA Active U 2012-07 [facility] [place] PENICILL Drug Active Unknown-Cmnt Un julio INS Class 6-12 ity of 00:00: [place] 00 Medical Branch Penicill Propensi Active Unknown - Uni vers ins ty to See comments 6-12 ity of adverse 00:00: [place] reaction 00 Medical s Branch Social History Social Habit Start Date Stop Date Quantity Comments Source ASSERTION 2020-03-02 University 00:00:00 [facility] Sex Assigned At [facility]it [facility] Exposure to Not sure [facility] SARS-CoV-2 [place] Medical (event) Branch Alcohol intake 2020-03-19 2020-03-19 Current University 00:00:00 00:00:00 non-drinker of [facility] [place] alcohol Branch (finding) Tobacco use and 2020-03-19 2020-03-19 Never used Universit y of exposure 00:00:00 00:00:00 [facility] Smoking Status Start Date Stop Date Source Never smoker [facility] xa Medical Branch Medications Ordered Filled Start Stop Current Ordering Indication Dosage Frequency Signature Comments Components Source Medication Medication Date Date Medication? Clinician (SIG) Name Name metFORMIN 500mg Take 500 Un julio 500 mg 03-19 mg by ity of tablet 16:04: 00:00 mouth 2 [place] 47 :00 (two) Medical times Branch daily with meals. metFORMIN 2020- No 500mg Take 500 Un julio 500 mg 8-28 08-28 mg by ity of tablet 16:04: 00:00 mouth 2 [place] 47 :00 (two) Medical times Branch daily with meals. metFORMIN 2020- No 500mg Take 500 Un julio 500 mg 8-28 08-28 mg by ity of tablet 16:04: 00:00 mouth 2 [place] 47 :00 (two) Medical times Branch daily with meals. sulfamethox Yes [id number] 1{tbl} Take 1 Univers azole-trime 1-02 tablet by ity of thoprim 00:00: mouth [place] 800-160 mg 00 every 12 Medic al per tablet (twelve) Branc h hours. sulfamethox 2019- 2020- No [id number] 1{tbl} Take 1 Univers azole-trime 1-02 08-28 tablet by it y of thoprim 00:00: 00:00 mouth [place] 800-160 mg 00 :00 every 12 Medic al per tablet (twelve) Branc h hours. sulfamethox 2019-0 2020- No [id number] 1{tbl} Take 1 Univers azole-trime 1-02 08-28 tablet by it y of thoprim 00:00: 00:00 mouth [place] 800-160 mg 00 :00 every 12 Medic al per tablet (twelve) Branc h hours. sulfamethox 2020- No [id number] 1{tbl} Take 1 Univers azole-trime 1-02 08-28 tablet by it y of thoprim 00:00: 00:00 mouth [place] 800-160 mg 00 :00 every 12 Medic al per tablet (twelve) Branc h hours. metFORMIN Yes 500mg Take 500 Uni vers 500 mg 9-30 mg by ity of tablet 21:37: mouth 2 [place] 17 (two) Medical times Branch daily with meals. traMADOL 2015-07 Yes 50mg Take 1 Univers (ULTRAM) 50 1-13 tablet by ity of mg tablet 00:00: mouth [place] 00 every 6 Medical (six) Branch hours as needed for Pain (scale 4-6). Fransisca Johnson PA-C / Wyatt Dias MD JOSE# [id number] DPS# [id number] x Lic.# [id number] NPI# [id number] tang 2015-07 Yes Apply to Univer s sulfADIAZIN 08-04 area(s) 2 ity of E 00:00: (two) [place] (SILVADENE) 00 times Medical 1 % cream daily. Branch traMADOL 2015-07 2020- No 50mg Take 1 Univer s (ULTRAM) 50 08-04 tablet by it y of mg tablet 00:00: 00:00 mouth [place] 00 :00 every 6 Medical (six) Branch hours as needed for Pain (scale 4-6). Fransisca Johnson PA-C / Wyatt Dias MD JOSE# [id number] DPS# [id number] x Lic.# [id number] NPI# [id number] tang 2015-07- No Apply to Unive rs sulfADIAZIN 08-04 area(s) 2 it y of E 00:00: 00:00 (two) [place] (SILVADENE) 00 :00 times Medical 1 % cream daily. Branch traMADOL 2015-07 2020- No 50mg Take 1 Univer s (ULTRAM) 50 08-04 tablet by it y of mg tablet 00:00: 00:00 mouth [place] 00 :00 every 6 Medical (six) Branch hours as needed for Pain (scale 4-6). Fransisca Johnson PA-C / Wyatt Dias MD JOSE# [id number] DPS# [id number] x Lic.# [id number] NPI# [id number] tang 2015-07 2020- No Apply to Unive rs sulfADIAZIN 08-04 area(s) 2 it y of E 00:00: 00:00 (two) [place] (SILVADENE) 00 :00 times Medical 1 % cream daily. Branch traMADOL 2015-07 2020- No 50mg Take 1 Univer s (ULTRAM) 50 08-04 tablet by it y of mg tablet 00:00: 00:00 mouth [place] 00 :00 every 6 Medical (six) Branch hours as needed for Pain (scale 4-6). Fransisca Johnson PA-C / Wyatt Dias MD JOSE# [id number] DPS# [id number] x Lic.# [id number] NPI# [id number] [facility] 2015-07 2020- No Apply to [facility] rs sulfADIAZIN 08-04 area(s) 2 it y of E 00:00: 00:00 (two) [place] (SILVADENE) 00 :00 times Medical 1 % cream daily. Branch No known No Univers medications ity [facility] No known No Univers medications ity [facility] No known No Univers medications ity [facility] No known No Univers medications ity [facility] No known No Univers medications ity [facility] No known No Univers medications ity [facility] Immunizations Ordered Filled Immunization Date Status Comments Sourc e Immunization Name Name HPV 2015-09-07 Completed University of 00:00:00 [facility] HPV 2015-09-07 Completed University of 00:00:00 [facility] HPV 2015-09-07 Completed University of 00:00:00 [facility] HPV 2015-09-07 Completed University of 00:00:00 [facility] HPV 2015-09-07 Completed University of 00:00:00 [facility] HPV 2015-09-07 Completed University of 00:00:00 [facility] HPV 2015-09-07 Completed University of 00:00:00 [facility] HPV 2015-09-07 Completed University of 00:00:00 [facility] HPV 2015-09-07 Completed University of 00:00:00 [facility] HPV 2015-09-07 Completed University of 00:00:00 [facility] Td 2010-01-01 Completed University of 00:00:00 [facility] Td 2010-01-01 Completed University of 00:00:00 [facility] Td 2010-01-01 Completed University of 00:00:00 [facility] Td 2010-01-01 Completed University of 00:00:00 [facility] Td 2010-01-01 Completed University of 00:00:00 [facility] Td 2010-01-01 Completed University of 00:00:00 [facility] Td 2010-01-01 Completed University of 00:00:00 [facility] Td 2010-01-01 Completed University of 00:00:00 [facility] Td 2010-01-01 Completed University of 00:00:00 [facility] Td 2010-01-01 Completed University of 00:00:00 [facility] Branch Vital Signs Vital Name Observation Time Observation Value Comments Source Systolic blood 2020-03-19 15:26:00 115 mm[Hg] Univer sity of pressure [facility] Branch Diastolic blood 2020-03-19 15:26:00 72 mm[Hg] Unive rsity of pressure [facility] Heart rate 2020-03-19 15:26:00 85 /min Universi ty of [facility] Body temperature 2020-03-19 15:26:00 36.78 Annelise Univ ersity of [facility] Respiratory rate 2020-03-19 15:26:00 18 /min Univ ersity of [facility] Body height 2020-03-19 15:26:00 152.4 cm Universi ty of [facility] Body weight 2020-03-19 15:26:00 74.844 kg Universi ty of [facility] BMI 2020-03-19 15:26:00 32.22 kg/m2 Universi ty of [facility] Systolic blood 2020-03-19 15:26:00 115 mm[Hg] Univer sity of pressure [facility] Diastolic blood 2020-03-19 15:26:00 72 mm[Hg] Unive rsity of pressure [facility] Heart rate 2020-03-19 15:26:00 85 /min Universi ty of [facility] Body temperature 2020-03-19 15:26:00 36.78 Annelise Univ ersity of [facility] Respiratory rate 2020-03-19 15:26:00 18 /min Univ ersity of [facility] Body height 2020-03-19 15:26:00 152.4 cm Universi ty of [facility] Body weight 2020-03-19 15:26:00 74.844 kg Universi ty of [facility] BMI 2020-03-19 15:26:00 32.22 kg/m2 Universi ty of [facility] Procedures Procedure Date / Time Performing Clinician Source Performed US FIRST 2020-03-24 22:54:53 Guadalupe Moore [facility] TRIMESTER LESS THAN 14 Medical B ranch WEEKS WITH TRANSVAGINAL PAP SMEAR-LIQUID 2020-03-19 16:22:00 Guadalupe Moore [facility] BASED- Medical Branch ASSIGNMENT OF BENEFITS 2020-03-19 15:18:09 Doctor Unassigned, No [facility] Branch POCT TEST 2020-03-19 00:00:00 Guadalupe Moore [facility] POCT URINALYSIS W/O 2020-03-19 00:00:00 Guadalupe Moore [facility] [place] [facility] [place] SPECIFIC GRAVITY [facility] Branch Encounters Start End Encounter Admission Attending Care Care Encounter Source Date/Time Date/Time Type Type Clinicians Facility Department ID 2019-07-25 Inpatient [facility] KALEN [id number] [facility] 13:04:00 [id number] [facility] [place] 2020-04-09 2020-04-09 Outpatient R GUADALUPE MOORE [facility] [id number] Univers 09:30:00 09:30:00 [id number] ity of [facility] 2020-04-09 2020-04-09 Outpatient R GUADALUPE MOORE [facility] [id number] Univers 09:30:00 09:30:00 ity of [facility] 2020-04-08 2020-04-08 Outpatient R GUADALUPE MOORE [facility] [id number] Univers 10:45:00 10:45:00 [id number] ity of [facility] 2020-04-06 2020-04-06 Outpatient R GUADALUPE MOORE [facility] [id number] Univers 10:30:00 10:30:00 [id number] ity of [facility] 2020-04-06 2020-04-06 Outpatient R GUADALUPE MOORE [facility] [id number] Univers 10:30:00 10:30:00 ity of [facility] 2020-04-05 2020-04-05 Outpatient R [facility] [id number] Univers 11:00:00 11:00:00 [id number] ity of [facility] 2020-04-02 2020-04-02 Outpatient R [facility] [id number] Univers 11:00:00 11:00:00 [id number] ity of [facility] 2020-03-31 2020-03-31 Outpatient R [facility] [id number] Univers 11:00:00 11:00:00 ity of [facility] 2020-03-31 2020-03-31 Outpatient R GUADALUPE MOORE [facility] [id number] Univers 11:00:00 11:00:00 ity of [facility] 2020-03-31 2020-03-31 Apprentice Cook 2, Adc Lab [facility] [id number] Univers 08:49:59 09:04:59 Visit Guadalupe [place] [id number] ity [id number] [place] Profess[place] [phone] [facility] [address] [facility] 2020-03-31 2020-03-31 Apprentice Cook 2, Adc Lab [facility] [id number] 08:49:59 09:04:59 Visit [place] [id number] [place] [id number] Professio [phone] [address] 2020-03-25 2020-03-25 [facility] [id number] Univers 00:00:00 00:00:00 Cam [place] [id number] i ty of [id number] [phone] [facility] 2020-03-24 2020-03-24 Hospital [facility] [id number] Univers 16:47:17 23:59:00 Encounter Kwabena [place] [id number] ity of [place] [id number] [place] [phone] [facility] [address] [place] [address] 2020-03-24 2020-03-24 Outpatient R GUADALUPE MOORE [facility] [id number] Univers 10:30:00 10:30:00 ity [facility] 2020-03-24 2020-03-24 Outpatient R RONALD [facility] [id number] Univers 09:30:00 09:30:00 SHANNON ity of [facility] 2020-03-24 2020-03-24 Apprentice Cook 2, Adc Lab [place] [id number] Univers 08:47:57 09:02:57 Visit Guadalupe [place] [id number] ity [place] [id number] [phone] [address] 2020-03-22 2020-03-22 Outpatient [facility] [id number] Univers 10:30:00 10:30:00 [id number] ity [facility] 2020-03-22 2020-03-22 Outpatient R GUADALUPE MOORE [facility] [id number] Univers 10:30:00 10:30:00 ity of [facility] 2020-03-22 2020-03-22 Apprentice Cook 2, Adc Lab [facility] [id number] Univers 08:16:34 08:31:34 Visit Guadalupe Moore [place] [id number] ity of [place] [id number] [phone] Tn dical nal [address] [facility] 2020-03-19 2020-03-19 Initial Guadalupe Moore [facility] [id number] Univers 10:20:58 15:16:36 Cam [place] [id number] ity of Visit [place] [id number] [phone] Tn dical nal 134 [facility] 2020-03-19 2020-03-19 Initial Guadalupe Moore [facility] [id number] 10:20:58 15:16:36 Cam [place] [id number] Visit [place] [id number] Professio [phone] [address] 2020-03-19 2020-03-19 Apprentice Cook 2, Adc Lab [facility] [id number] Univers 11:38:39 11:53:39 Visit Guadalupe Moore [place] [id number] ity of [place] [id number] [phone] Tn dical nal [address] [facility] 2020-03-19 2020-03-19 Outpatient R [facility] [id number] Univers 11:45:00 11:45:00 [id number] ity of [facility] 2020-03-19 2020-03-19 Outpatient R GUADALUPE MOORE [facility] [id number] Univers 10:00:00 10:00:00 ity [facility] 2020-03-19 2020-03-19 Orders Doctor SCHREIBER [id number] Univers 00:00:00 00:00:00 Only Unassigned, [place] [id number] ity of [place] [facility] [id number] Yariel as [phone] [place] [address] Branch 2019-07-24 2019-07-24 Emergency X BRANDIN III, [facility] ERT [id number] Univers 22:50:39 23:38:00 FRANSISCA ity of [facility] Results Test Description Test Time Test Results Result Source Comments Comments US No evidence of Univers ity of [place] TRIMESTER 2 intrauterine or [place] LESS THAN 14 23:36:24 extrauterine Branch WEEKS WITH . Findings TRANSVAGINAL mayrepresent very early . Recommend correlation with serial beta hCGand close follow-up ultrasound as clinically indicated. Left ovarian corpus luteal cyst. Thick-walled prominently anechoic left ovarian cystic structure withlow-level eccentric internal echoes, likely a retracting clot suggesting ahemorrhagic cyst. Preliminary Report Dictated by Resident: Cristi Culp MD., have reviewed this study and agree with theabove report.TRANSABDOMINAL AND TRANSVAGINAL PELVIC ULTRASOUND HISTORY: 24-year-old female with positive test and left lowerquadrant pain BETA hC mL LMP: 02/17/2020 TECHNIQUE: Grayscale and color Doppler ultrasound imaging of the pelvisutilizing transabdominal and transvaginal approach was performed. COMPARISON: ?None. FINDINGS: The uterus measures 8.4 x 3.5 x 4.7 cm. ?The endometrial stripe measures anormal 0.8 cm. No evidence of intrauterine or extrauterine gestational sac, pole or heart tones. No yolk sac is seen. The right ovary is normal size and measures 2.4 x 1.4 x 1.9 cm. The left ovary is mildly enlarged measuring 6.4 x 3.4 x 4.0 cm and containsa predominantly hypoechoic thick-walled corpus luteal cyst with peripheralrim of vascularity measuring up to 2.6 cm. The left ovary also contains athick-walled anechoic cystic structure with layering low-level internalechoes, likely a retracting clot. The urinary bladder is distended but otherwise unremarkable. ? Small volume of free fluid is present in the cul-de-sac. Small pocket ofthis fluid appears mildly complex but this may be related to artifactrather than true finding. Cine series demonstrate relatively simple fluid. [facility], Radiant Results Inft User - 03/24/2020 6:37 PM CDTTRANSABDOMINAL AND TRANSVAGINAL PELVIC ULTRASOUNDHISTORY: 24-year-old female with positive test and left lowerquadrant painBETA hC mLLMP: 02/17/2020TECHNIQUE: Grayscale and color Doppler ultrasound imaging of the pelvisutilizing transabdominal and transvaginal approach was performed.COMPARISON: None.FINDINGS: The uterus measures 8.4 x 3.5 x 4.7 cm. The endometrial stripe measures anormal 0.8 cm. No evidence of intrauterine or extrauterine gestational sac, pole or heart tones. No yolk sac is seen. The right ovary is normal size and measures 2.4 x 1.4 x 1.9 cm. The left ovary is mildly enlarged measuring 6.4 x 3.4 x 4.0 cm and containsa predominantly hypoechoic thick-walled corpus luteal cyst with peripheralrim of vascularity measuring up to 2.6 cm. The left ovary also contains athick-walled anechoic cystic structure with layering low-level internalechoes, likely a retracting clot. The urinary bladder is distended but otherwise unremarkable. Small volume of free fluid is present in the cul-de-sac. Small pocket ofthis fluid appears mildly complex but this may be related to artifactrather than true finding. Cine series demonstrate relatively simple fluid.IMPRESSION No evidence of intrauterine or extrauterine . Findings mayrepresent very early . Recommend correlation with serial beta hCGand close follow-up ultrasound as clinically indicated.Left ovarian corpus luteal cyst.Thick-walled prominently anechoic left ovarian cystic structure withlow-level eccentric internal echoes, likely a retracting clot suggesting ahemorrhagic cyst. Preliminary Report Dictated by Resident: Martha Cordova, Cristi Tamez MD., have reviewed this study and agree with theabove report. POCT URINALYSIS W/O SPECIFIC GRAVITY 2020-03-19 16:15:00 Test Item Value Reference Range Interpretation Comme nts POCT PH U (test code = 3254) n/a 5-8 POCT U LEUK EST (test code = 3263) n/a Negative - Negative POCT U NIT (test code = 3262) n/a Negative - Negative POCT U PROT (test code = 3259) neg Negative - Negative POCT U GLU (test code = 3256) neg Negative - Negative POCT U KETONE (test code = 3258) n/a Negative - Negative POCT U BLD (test code = 3257) n/a Negative - Negative [facility] URINALYSIS W/O SPECIFIC [id number] 16:15:00 Test Item Value Reference Range Interpretation Comments POCT PH U (test code = 3254) n/a 5-8 POCT U LEUK EST (test code = 3263) n/a Negative - Negative POCT U NIT (test code = 3262) n/a Negative - Negative POCT U PROT (test code = 3259) neg Negative - Negative POCT U GLU (test code = 3256) neg Negative - Negative POCT U KETONE (test code = 3258) n/a Negative - Negative POCT U BLD (test code = 3257) n/a Negative - Negative [facility] URINALYSIS W/O SPECIFIC [id number] 16:15:00 Test Item Value Reference Range Interpretation Comments POCT PH U (test code = 3254) n/a 5-8 POCT U LEUK EST (test code = 3263) n/a Negative - Negative POCT U NIT (test code = 3262) n/a Negative - Negative POCT U PROT (test code = 3259) neg Negative - Negative POCT U GLU (test code = 3256) neg Negative - Negative POCT U KETONE (test code = 3258) n/a Negative - Negative POCT U BLD (test code = 3257) n/a Negative - Negative [facility] [id number] 15:57:00 Test Item Value Reference Range Interpretation Comments POCT PREG (test code = 1605) Positive On board controls acceptable with C Yes Line (test code = 3574) POCT PREG LOT # (test code = 3575) POCT PREG TEST DATE (test code = 3576) [facility] [id number] 15:57:00 Test Item Value Reference Range Interpretation Comments POCT PREG (test code = 1605) Positive On board controls acceptable with C Yes Line (test code = 3574) POCT PREG LOT # (test code = 3575) POCT PREG TEST DATE (test code = 3576) [facility] [place] [id number] 15:57:00 Test Item Value Reference Range Interpretation Comments POCT PREG (test code = 1605) Positive On board controls acceptable with C Yes Line (test code = 3574) POCT PREG LOT # (test code = 3575) POCT PREG TEST DATE (test code = 3576) [facility] [place] [facility] 14:39:00 Test Item Value Reference Range Interpretation Comments GLUBED (test code = GLUBED) 185 mg/dL 65-110 H UA RFLX MICR CULT IF [id number] 14:10:00 Test Item Value Reference Range Interpretation [...] RARE-FEW Indication for culture: Suprapubic PainUR HCG [id number] 14:10:00 Test Item Value Reference Range Interpretation [...] RARE-FEW Indication for culture: Suprapubic PainUR HCG [id number] 14:03:00 Test Item Value Reference Range Interpretation [...]
[2021-12-02 18:39] LABS: Potassium 3.8 mmol/L (3.5-5.1)
[2021-12-02 18:42] LABS: Absolute Lymphocytes (CBC) 3.3 K/uL (0.7-4.9); Hematocrit 41.9 % (36.0-45.0); Lymphocytes % 39.8 % (15.3-44.8); MPV 8.9 fL (7.6-11.3)
[2021-12-02 18:45] LABS: Urine Blood 2+ (Negative); Urine Glucose Negative (Negative); Urine Protein Negative (Negative); Urine Specific Gravity 1.025 (1.005-1.030)
[2021-12-02 19:17] LABS: Urine Bacteria <20 /HPF (<20)
[2021-12-02] MEDS ORDERED: ACETAMINOPHEN 500 MG TAB ONE (19:37)
[2021-12-02] MEDS ORDERED: ONDANSETRON 4 MG/2 ML VIAL ONE (19:37)
[2021-12-02 19:39] LABS: Urine Specific Gravity/Preg 1.025 (1.005-1.030)
--- NOTE | 2021-12-02 20:45 | RAD REPORT ---
EXAM DESCRIPTION: US - Transvaginal Study Probe - 12/02/2021 8:32 pm CLINICAL HISTORY: VAGINAL BLEEDING Pelvic pain. COMPARISON: TRANSVAGINAL STUDY PROBE dated 08/01/2014 FINDINGS: The uterus is normal in size, shape and echotexture. The uterus measures 7.2 x 4.5 x 3.8 c m. The endometrial stripe measures 2 mm, normal. Both ovaries are normal in size, shape and echotexture. The right ovary measures 2.6 x 1.9 x 1.9 cm. The left ovary measures 2.2 x 2.0 x 2.2 cm. No ovarian or parovarian lesions. No adnexal masses. Normal Doppler blood flow was demonstrated to both ovaries. No significant pelvic ascites. IMPRESSION: Unremarkable study.
--- NOTE | 2021-12-02 20:53 | ER ---
Nurse's Notes [facility] Name: Odessa Ruiz Age: 26 yrs Sex: Female : 1995 Arrival Date: 12/02/2021 Time: 17:11 Bed 6 Private MD: Diagnosis: Abnormal uterine and vaginal bleeding, unspecified Presentation: 12/02 17:35 Chief complaint: Patient states: Is about five days late for menstruation; states "took vg1 several tests and some where positive and some were negative so Im unsure if I am or not ". Also states pelvic pain/pressure with vaginal bleeding; states clots and bleeding is spotty; changes pad q4h. Coronavirus screen: Vaccine status: Patient reports being unvaccinated. Client denies travel out of the [place] in the last 14 days. Ebola Screen: Patient denies exposure to infectious person. Patient denies travel to an Ebola-affected area in the 21 days before illness onset. Initial Sepsis Screen: Does the patient meet any 2 criteria? No. Patient's initial sepsis screen is negative. Does the patient have a suspected source of infection? No. Patient's initial sepsis screen is negative. Risk Assessment: Do you want to hurt yourself or someone else? Patient reports no desire to harm self or others. Onset of symptoms was November 30, 2021. 17:35 Method Of Arrival: Ambulatory vg1 17:35 Acuity: DAVY 3 vg1 Triage Assessment: 17:39 General: Appears uncomfortable, Behavior is calm, cooperative. Pain: Complains of pain vg1 in groin and suprapubic area Pain currently is 6 out of 10 on a pain scale. Pain began 1 day ago. : Reports vaginal bleeding that is bright red, with clots, spotty. 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 - Social history:: Smoking status: Reported history of juuling and/or vaping. Screenin:01 Abuse screen: Denies threats or abuse. Denies injuries from another. Nutritional jl7 screening: No deficits noted. Tuberculosis screening: No symptoms or risk factors identified. Fall Risk IV access (20 points). Total [place] Fall Scale indicates No Risk (0-24 pts). Assessment: 19:01 Obstetrical Assessment: General assessment: awake and alert. Pain: Complains of pain in jl7 left lower quadrant Pain currently is 6 out of 10 on a pain scale. Neuro: Level of Consciousness is awake, alert, obeys commands, Oriented to person, place, time, situation. Cardiovascular: Patient's skin is warm and dry. Respiratory: Airway is patent Respiratory effort is even, unlabored, Respiratory pattern is regular, symmetrical. : Reports vaginal bleeding that is. Derm: Skin is pink, warm \\T\\ dry. Vital Signs: 17:35 BP 124 / 83; Pulse 95; Resp 16; Temp 98.4(TE); Pulse Ox 100% on R/A; Weight 74.84 kg; vg1 Height 5 ft. 0 in. (152.40 cm); Pain 6/10; 19:01 BP 124 / 78; Pulse 82; Resp 15; Pulse Ox 100% ; jl7 17:35 Body Mass Index 32.22 (74.84 kg, 152.40 cm) 1 ED Course: 17:11 Patient arrived in ED. am2 17:29 Raghu Arnold PA is PHCP. cp 17:29 Miguel Aldana MD is Attending Physician. cp 17:39 Triage completed. 1 17:39 Arm band placed on. vg1 18:18 Initial lab(s) drawn, by nh, sent to lab. Inserted saline lock: 20 gauge in left vg1 antecubital area, using aseptic technique. Blood collected. 18:47 Alexis Felix, RN is Primary Nurse. [facility] 18:50 Urine Microscopic Only Sent. [facility] 18:50 Urine collected: clean catch specimen, cloudy. 5 18:51 Patient has correct armband on for positive identification. Bed in low position. Call [facility] light in reach. Side rails up X 1. Warm blanket given. Pulse ox on. NIBP on. 19:53 Primary Nurse role handed off by Alexis Felix RN ke1 19:53 Jeison Matson, RN is Primary Nurse. ke1 20:34 Transvaginal Study (Probe) In Process Unspecified. EDMS 21:24 No provider procedures requiring assistance completed. Patient did not have IV access ke1 during this emergency room visit. Administered Medications: 19:38 Drug: Zofran (Ondansetron) 4 mg Route: IVP; Site: left antecubital; [facility] 19:38 Drug: Tylenol 1000 mg Route: PO; 5 Outcome: 20:52 Discharge ordered by . araceli 21:24 Discharged to home left before she received the paperwork ke1 21:24 Condition: good 21:26 Patient left the ED. ke1 Signatures: Dispatcher [employer] EDMS Raghu Arnold PA PA cp Martinez, Maria [facility] Alexis Felix, RN RN jl7 Chelly Cantu Victoria, JAVI CALDWELL vg1 Stefani Ramirez RN RN 5 Jeison Matson, JAVI RN ke1
--- NOTE | 2021-12-02 20:53 | EDPHYS ---
Physician Documentation [facility] Name: Odessa Ruiz Age: 26 yrs Sex: Female : 1995 Arrival Date: 12/02/2021 Time: 17:11 Bed 6 Private MD: ED Physician Miguel Aldana HPI: 12/02 18:15 This 26 yrs old Female presents to ER via Ambulatory with complaints of Vaginal cp Bleeding, + Preg <12wks, Abdominal Cramping. 18:15 The patient presents with vaginal bleeding that is moderate, with clots. cp 18:15 Onset: The symptoms/episode began/occurred 1 day(s) ago. cp 18:15 Associated signs and symptoms: Pertinent positives: cramping, nausea, lower abdomen cp pain, Pertinent negatives: diarrhea, dysuria, fever, vomiting. Severity of symptoms: in the emergency department the symptoms are unchanged. The patient's method of control includes nothing. Patient reports regular menstrual cycle and concerned that menstrual cycle has not been regular this month. Took several home tests over the past couple days with a positive results and couple negative results. 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 - Social history:: Smoking status: Reported history of juuling and/or vaping. ROS: 18:20 Constitutional: Negative for body aches, chills, fever, poor PO intake. cp 18:20 Eyes: Negative for injury, pain, redness, and discharge. cp 18:20 ENT: Negative for drainage from ear(s), ear pain, sore throat, difficulty swallowing, difficulty handling secretions. 18:20 Cardiovascular: Negative for chest pain, edema, palpitations. 18:20 Respiratory: Negative for cough, shortness of breath, wheezing. 18:20 Abdomen/GI: Positive for abdominal pain, nausea, Negative for vomiting, diarrhea, constipation. 18:20 Back: Negative for pain at rest, pain with movement. 18:20 : Positive for vaginal bleeding, Negative for urinary symptoms. 18:20 Neuro: Negative for altered mental status, dizziness, headache, weakness. 18:20 All other systems are negative. Exam: 18:25 Constitutional: The patient appears in no acute distress, alert, awake, cp non-diaphoretic, non-toxic, well developed, well nourished. 18:25 Head/Face: Normocephalic, atraumatic. cp 18:25 Eyes: Periorbital structures: appear normal, Conjunctiva: normal, no exudate, no injection, Sclera: no appreciated abnormality, Lids and lashes: appear normal, bilaterally. 18:25 ENT: External ear(s): are unremarkable, Nose: is normal, Mouth: Lips: moist, Oral mucosa: moist, Posterior pharynx: Airway: no evidence of obstruction, patent. 18:25 Chest/axilla: Inspection: normal. 18:25 Cardiovascular: Rate: normal, Rhythm: regular. 18:25 Respiratory: the patient does not display signs of respiratory distress, Respirations: normal, no use of accessory muscles, no retractions, labored breathing, is not present, Breath sounds: are clear throughout, no decreased breath sounds, no stridor, no wheezing. 18:25 Abdomen/GI: Inspection: abdomen appears normal, Bowel sounds: active, all quadrants, Palpation: soft, in all quadrants, mild abdominal tenderness, in the right lower quadrant and left lower quadrant, rebound tenderness, is not appreciated, involuntary guarding, is not appreciated. 18:25 Back: CVA tenderness, is absent. 18:25 Neuro: Orientation: to person, place \T\ time. Mentation: is normal, Motor: moves all fours, strength is normal, Sensation: is normal. Vital Signs: 17:35 BP 124 / 83; Pulse 95; Resp 16; Temp 98.4(TE); Pulse Ox 100% on R/A; Weight 74.84 kg; vg1 Height 5 ft. 0 in. (152.40 cm); Pain 6/10; 19:01 BP 124 / 78; Pulse 82; Resp 15; Pulse Ox 100% ; jl7 17:35 Body Mass Index 32.22 (74.84 kg, 152.40 cm) vg1 MDM: 18:39 Patient medically screened. 19:00 Differential diagnosis: cervicitis, ectopic , threatened Ab, inevitable Ab, cp complete Ab, retained Ab, placenta previa, ruptured ectopic , uterine fibroids, urinary tract infection, vaginosis. 20:50 Data reviewed: vital signs, nurses notes, lab test result(s), radiologic studies, cp ultrasound. 20:50 Counseling: I had a detailed discussion with the patient and/or guardian regarding: the cp historical points, exam findings, and any diagnostic results supporting the discharge/admit diagnosis, lab results, radiology results, the need for outpatient follow up, an OB/Gyne specialist, to return to the emergency department if symptoms worsen or persist or if there are any questions or concerns that arise at home. Response to treatment: the patient's symptoms have mildly improved after treatment, and as a result, I will discharge patient. 12/02 18:01 Order name: Urine Microscopic Only; Complete Time: 19:21 12/02 18:07 Order name: Abo/rh Typing; Complete Time: 20:47 [facility] 12/02 18:07 Order name: Basic Metabolic Panel; Complete Time: 19:02 [facility] 12/02 18:07 Order name: CBC with Diff; Complete Time: 19:02 [facility] 12/02 18:46 Order name: Urine Dipstick-Ancillary; Complete Time: 19:02 [facility] 12/02 19:21 Order name: Urine --Ancillary (enter results); Complete Time: 20:47 [facility] 12/02 18:01 Order name: Urine Dipstick-Ancillary (obtain specimen); Complete Time: 18:50 12/02 18:01 Order name: Urine Test (obtain specimen); Complete Time: 18:47 12/02 19:35 Order name: LAB Add On 12/02 19:35 Order name: US Transvaginal Study (Probe); Complete Time: 20:47 12/02 19:37 Order name: HCG, Quantitative; Complete Time: 20:47 [facility] 12/02 20:47 Interpretation: Reviewed. 12/02 18:07 Order name: IV Saline Lock; Complete Time: 18:18 [facility] 12/02 18:07 Order name: Labs collected and sent; Complete Time: 18:17 [facility] 12/02 18:07 Order name: NPO; Complete Time: 18:17 vg1 12/02 18:07 Order name: Urine Dipstick-Ancillary (obtain specimen); Complete Time: 18:47 vg1 Administered Medications: 19:38 Drug: Zofran (Ondansetron) 4 mg Route: IVP; Site: left antecubital; 5 19:38 Drug: Tylenol 1000 mg Route: PO; sm5 Disposition Summary: 12/02/21 20:52 Discharge Ordered Location: Home cp Problem: new cp Symptoms: have improved cp Condition: Stable cp Diagnosis - Abnormal uterine and vaginal bleeding, unspecified cp Followup: cp - With: Private Physician - When: 2 - 3 days - Reason: Worsening of condition Discharge Instructions: - Discharge Summary Sheet cp - Abnormal Uterine Bleeding cp Forms: - Medication Reconciliation Form cp - Thank You Letter cp - Antibiotic Education cp - Prescription Opioid Use cp Prescriptions: - Ibuprofen 800 mg Oral Tablet - take 1 tablet by ORAL route every 8 hours As needed take with food; 30 tablet; cp Refills: 0, Product Selection Permitted Signatures: Dispatcher [employer] EDMS Raghu Arnold PA PA cp Garcia, Victoria, RN RN vg1 Stefani Ramirez RN RN sm5 Corrections: (The following items were deleted from the chart) 19:38 19:36 QUANTITATIVE HCG+C.LAB.BRZ ordered. EDMS EDMS
[2021-12-03 13:11] VITALS: TEMP 98.4; O2SAT 100
[2021-12-03 13:13] VITALS: BP 124/78
== END 2021-12-02 21:26 | disposition home or self-care (01) ==
LOC: ER 17:02
DX: N93.9 Abnormal uterine and vaginal bleeding, unspecified (principal); R10.9 Unspecified abdominal pain; Z88.0 Allergy status to penicillin
CPT/HCPCS: 85025; 80048; 36415; 86900; 81025; 86901; 84702; 76830; 96374; 99284; J2405; 81003; 81015